=== PATIENT | female | born 1990 | race Caucasian/White ===

== ENCOUNTER 2023-11-28 09:41 | Inpatient (IN) | payer MEDICAID, SELFPAY ==
[2023-11-28 09:43] VITALS: BP 140/86; PULSE 129; RESP 18; TEMP 36.1; O2SAT 99; BMI 19.4
[2023-11-28] MEDS: Ondansetron 4 MG/2 ML Vial IV (10:11)
[2023-11-28] MEDS: 0.9% Normal Saline (1000mL) 1,000 ML 999 ML IV (10:11)
[2023-11-28 10:14] LABS: Absolute Lymphocyte Count 0.92 X10^3/uL (0.83-4.51); Absolute Neutrophil Count 4.2 X10^3/uL (2.0-7.7); Basophil# 0.04 X10^3/uL; Basophil% 0.7 % (0-1); Hematocrit 32.9 % (37-47); Hemoglobin 10.9 g/dL (12.0-15.0); Lymphocyte # 0.92 X10^3/ul (0.83-4.51); Mean Corp Hgb Conc 33.1 g/dL (32-36); Mean Corpuscular Hgb 32.8 pg (27.0-32.0); Mean Corpuscular Volume 99.1 fL (81-99); Mean Platelet Vol. 8.2 fl (6.2-12.0); Monocyte# 0.27 X10^3/uL; NRBC Flagged by Analyzer 0 % (0-5); Neutrophil # 4.16 X10^3/uL (2.7-7.7); Neutrophil % 76.9 % (47-70); Platelet Count 151 K/mm3 (150-450); RBC Distribution Width CV 17.5 % (11.6-14.6); RBC Distribution Width SD 63.6 fl (35.1-43.9); Red Blood Count 3.32 M/mm3 (4.2-5.4); White Blood Count 5.4 K/mm3 (4.4-11.0)
[2023-11-28 10:29] LABS: Osmolality, Serum 327 mOsm/KG (275-295)
[2023-11-28 10:31] LABS: Internal QC Validated? YES +Cl - CLEAR BKGD; Pregnancy, Serum, hCG Quali. NEGATIVE Negative; Record Kit Lot#, Serum Preg. HCG0000772476
[2023-11-28 10:34] LABS: ALB/GLOB Ratio 1.1 RATIO (0.9-2.4); AST(SGOT) 223 U/L (15-37); Alanine Aminotransfer ALT/SGPT 71 U/L (13-56); Alkaline Phosphatase 93 U/L (45-117); Anion Gap 21 (5-15); BUN 9 mg/dL (7-18); BUN/Creat Ratio 10.8 RATIO (10-20); Calcium,Total 8.3 mg/dL (8.5-10.1); Chloride 95 mmol/L (98-107); Creatinine, Serum 0.83 mg/dL (0.55-1.02); EST Glomerular Filtration Rate 83 mL/min (>60); Est Glom Filt Rate - Afr Amer 100 mL/min (>60); Estimated Creatinine Clearance 86.71 ml/min; Globulin 3.5 g/dL (2.2-4.2); Glucose 129 mg/dL (74-106); Potassium 3.5 mmol/L (3.5-5.1); Protein, Total 7.5 g/dL (6.4-8.2); Sodium Level 132 mmol/L (136-145)
--- NOTE | 2023-11-28 10:52 | CT_ITS ---
EXAM: CT ABDOMEN AND PELVIS WITH INTRAVENOUS CONTRAST CLINICAL INDICATION: abdominal pain TECHNIQUE: Helically acquired images were obtained of the abdomen and pelvis with intravenous contrast. This CT exam was performed using one or more of the following dose reduction techniques: automated exposure control, adjustment of the mA and/or kV according to patient size, and/or use of iterative reconstruction technique. CONTRAST: IV 70mL [id number] COMPARISON: No relevant prior studies available. FINDINGS: LOWER THORAX: No significant abnormality. Lung bases are clear. No cardiomegaly. No significant pericardial effusion. ABDOMEN: LIVER: Diffuse low-attenuation throughout the liver consistent with fatty infiltration. No hepatic capsular nodularity or focal hepatic lesion is identified. GALLBLADDER AND BILE DUCTS: No significant abnormality. No calcified gallstones. No gallbladder distention or wall edema. No intra- or extrahepatic biliary ductal dilation. PANCREAS: Subtle peripancreatic edema without focal pancreatic lesion. SPLEEN: No significant abnormality. Normal size without focal cystic or solid mass. ADRENALS: No significant abnormality. No nodules. KIDNEYS AND URETERS: Horseshoe kidney. Otherwise, no additional renal abnormality. No hydronephrosis. STOMACH AND BOWEL: No significant abnormality. No stomach or bowel distention. No focal inflammatory change. PELVIS: APPENDIX: A normal appendix is identified in the right lower quadrant. BLADDER: No significant abnormality. REPRODUCTIVE: An IUD is present. ABDOMEN and PELVIS: INTRAPERITONEAL SPACE: No significant abnormality. No ascites or other fluid collection. No free air. BONES/JOINTS: No significant abnormality. No suspicious lytic or blastic abnormality. SOFT TISSUES: No significant abnormality. No discrete abdominal or pelvic wall hernia. VASCULATURE: No significant abnormality. Abdominal aorta is non-dilated. LYMPH NODES: No significant abnormality. No enlarged lymph nodes. CT/Abdomen/Pelvis W IV Cont ONLY IMPRESSION: 1. Suspect mild uncomplicated acute pancreatitis. 2. Fatty liver. No evidence of cirrhosis. 3. Horseshoe kidney. Otherwise, no additional renal abnormality. Electronically Signed: Ronni Pal DO at 11:53 EDT ,
[2023-11-28 11:03] LABS: Lipase 345 U/L (13-75)
[2023-11-28 11:15] LABS: Magnesium 1.6 mg/dL (1.6-2.6)
--- NOTE | 2023-11-28 11:19 | EDS_ITS ---
HPI History of Present Illness Chief Complaint: Substance Abuse Narrative Narrative: 33-year-old female presenting from home with nausea, vomiting, abdominal pain. 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 She has not had any regular alcohol. She states that she has about 30 64 ounce bottles of hand boring and filling machine operator stashed around her house and when she feels like she needs to drink she will pump a few pumps into her mouth. She states she does not really know how much she is using she and she does this several times a day. Patient denies any other drugs. She denies history of pancreatitis. She does have history of depression and anxiety and states she takes her meds regularly. She states she did not do this to hurt herself intentionally. PFSH PFS Home Medications ?Medication ?Instructions ?Recorded ?Last Taken ?Type fluoxetine 20 mg capsule (Prozac) 20 mg PO DAILY 11/28/23 Unknown History olanzapine 5 mg tablet (Zyprexa) 5 mg PO DAILY 11/28/23 Unknown History Allergy/AdvReac Type Severity Reaction Status Date / Time No Known Allergies Allergy Verified 11/28/23 09:43 Social History Smoking Status: Former smoker ROS ROS ED Constitutional Constitutional ED: Denies chills, fever(s) or sweats Eyes Eyes: Denies blurry vision or change in vision ENT ENT ED: Denies ear pain or sore throat Cardiovascular Cardiovascular: Denies chest pain, palpitations or racing heartbeat Respiratory/Chest Respiratory/Chest: Denies cough, dyspnea or sputum Gastrointestinal Gastrointestinal: Reports abdominal pain, nausea and vomiting; Denies constipation or diarrhea Genitourinary Genitourinary ED: Denies dysuria, hematuria or urinary frequency Musculoskeletal Musculoskeletal: Denies arthralgias, myalgias or neck pain Integumentary Denies abscess, Abrasions or rash Neurologic Neurologic: Denies headache(s), paresthesias or weakness Psychiatric Psychiatric: Denies anxiety, depression, suicidal ideation or suicidal thoughts Endocrine Endocrinology: Denies polydipsia or polyuria EXAM Physical Exam Const Vital Signs: 11/28/23 09:43 11/28/23 12:00 Temperature 97.0 F L Temperature Source Temporal Pulse Rate 129 H 123 H Respiratory Rate 18 18 Blood Pressure 140/86 H 147/82 H Blood Pressure Mean 104 103 Pulse Ox 99 97 Oxygen Delivery Method Room Air Room Air Positive well nourished General Appearance ED: NAD; Negative for pallor HEENT Reports moist mucous membranes atraumatic Eyes PERRL and EOMs intact bilaterally Chest Wall inspection of chest normal Resp normal respiratory effort and clear to auscultation bilaterally Cardio regular rhythm Rate: tachycardic GI Palpation: tender epigastric and RUQ Back/Spine no CVA tenderness Extremity General Extremety ED: Negative for edema General Extremity: Negative for edema Neuro oriented x3 and CN's II-XII intact bilaterally Sensorium / Orientation: alert Motor Exam: strength 5/5 throughout Psych mental status grossly normal Skin General Skin Exam: Negative for jaundice or pallor MDM MDM MDM Narrative Medical decision making narrative: Patient presenting for detox. Patient states she has 64 ounce bottles of hand boring and filling machine operator at home that she stashes and when she needs some she just bumped it into her mouth. She states has been doing this since September. After initial evaluation patient had an episode of hematemesis. She has been vomiting. Patient presenting with right flank pain. Differential includes colitis, diverticulitis, gastritis, pancreatitis, Boerhaave's, upper GI bleed, acute cholecystitis, constipation, appendicitis, UTI, pyelonephritis, calculi, ureteral calculi, obstruction, malignancy, dehydration, electrolyte abnormalities, ovarian torsion, ovarian cyst, ectopic CBC will be obtained to assess white blood cell count, hemoglobin, platelets. CMP to assess renal function, electrolytes, liver function, glucose. Lipase to assess for pancreatitis. Will also obtain an EKG due to the tachycardia as well as a troponin. Urinalysis to assess for UTI. CBC shows a normal white count of 5.4. Hemoglobin 10.9 with no comparison. Platelets normal at 151. Creatinine is normal. Sodium slightly low at 132 and CO2 slightly low at 16. Glucose 129. Serum osmolality 327. Calculated osmolality 304.22 therefore she has a osmolar gap. And in anion gap. Glucose is only 129. Magnesium level normal at 1.6. Patient was given IV fluids, 2 mg of Ativan, started on a Protonix drip. Initially Zofran was helping but I gave her a dose of Phenergan IM. Discussed with poison control At length. Poison control rewards consultant felt lab work reflected likely isopropyl alcohol and they recommended supportive care in regard to this. I did ask if they recommended fomepizole given her unclear of what is in the lab work and they reassured me that believe it is isopropyl alcohol and also that if you start fomepizole it will prolong the half-life of the isopropyl alcohol. They also stated that it would metabolize into acetone and this was why ketones are showing up. They recommended checking an acetaminophen level and a salicylate level just out of caution. He also recommended a GI consult. Salicylates and acetaminophen were negative. Urine drug screen negative. EtOH 85. High-sensitivity troponin less than 3. EKG sinus rhythm at 109 bpm without sign of ischemic change. This is on my interpretation. hCG was negative. AST was mildly elevated at 223 and ALT 71. Lipase mildly elevated at 345. Because of her abdominal pain I obtained a CT of the abdomen pelvis with IV contrast. This shows mild uncomplicated acute pancreatitis. Discussed the case with Dr. Castro who is amenable to keeping the patient here at [facility]. Patient was typed and screened. Started on a Protonix drip. Discussed with hospitalist for admission. Impression: 1. Isopropyl alcohol ingestion 2. For GI bleed 3. EtOH withdrawal 4. Tachycardia 5. Acute pancreatitis 6. Elevated anion gap 7. Osmolar gap Lab Data Attestation: I reviewed the patient's lab results. Labs: Laboratory Results - last 24 hr 11/28/23 11/28/23 11/28/23 10:07 11:29 11:35 WBC 5.4 RBC 3.32 L Hgb 10.9 L Hct 32.9 L MCV 99.1 H MCH 32.8 H MCHC 33.1 RDW Std Deviation 63.6 H RDW Coeff of Janine 17.5 H Plt Count 151 MPV 8.2 Immature Gran % (Auto) 0.400 Neut % (Auto) 76.9 H Lymph % (Auto) 17.0 L [place] % (Auto) 5.0 Eos % (Auto) 0.0 Baso % (Auto) 0.7 Absolute Neuts (auto) 4.2 Absolute Lymphs (auto) 0.92 Nucleated RBC % 0 Sodium 132 L Potassium 3.5 Chloride 95 L Carbon Dioxide 16.0 L Anion Gap 21 H BUN 9 Creatinine 0.83 Estim Creat Clear Calc 86.71 Est GFR (MDRD) Af Amer 100 Est GFR (MDRD) Non-Af 83 BUN/Creatinine Ratio 10.8 Glucose 129 H Serum Osmolality 327 H Calcium 8.3 L Magnesium 1.6 Total Bilirubin 0.80 AST 223 H ALT 71 H Alkaline Phosphatase 93 Troponin I High Sens < 3 L Total Protein 7.5 Albumin 4.0 Globulin 3.5 Albumin/Globulin Ratio 1.1 Lipase 345 H Serum , Qual NEGATIVE Salicylates < 1.7 L Urine Opiates Screen NEGATIVE Urine Methadone Screen NEGATIVE Acetaminophen < 2.0 L Ur Barbiturates Screen NEGATIVE Ur Phencyclidine Scrn NEGATIVE Ur Amphetamines Screen NEGATIVE MDMA (Ecstasy) Screen NEGATIVE U Benzodiazepines Scrn NEGATIVE Urine Cocaine Screen NEGATIVE U Cannabinoids Screen NEGATIVE Ur Drug Screen Comment Ethyl Alcohol 85.0 Acetone Level SMALL H Blood Type O POSITIVE Antibody Screen NEGATIVE Radiography Diagnostic Testing: Clinical Impression(s) from Imaging Studies Abdomen/Pelvis CT 11/28/23 10:52 IMPRESSION: 1. Suspect mild uncomplicated acute pancreatitis. 2. Fatty liver. No evidence of cirrhosis. 3. Horseshoe kidney. Otherwise, no additional renal abnormality. Electronically Signed: Ronni Pal DO at 11:53 EDT Reading Location ID and State: [facility] / [place] Tel , Service support , ADDENDUM: 11/28/23 1206 IMPRESSION: 1. Suspect mild uncomplicated acute pancreatitis. 2. Fatty liver. No evidence of cirrhosis. 3. Horseshoe kidney. Otherwise, no additional renal abnormality. N.B. : Keyona Shin RN, confirmed on 11/28/2023 11:59:43 (ET) that the healthcare facility has received the radiology report. Electronically Signed: Ronni Pal DO at 11:53 EDT , Discharge Plan Triage Chief Complaint: Substance Abuse ED Provider: Alvaro Jimenez Dx/Rx/DC Orders Primary Care Provider: Care Physician,Chelsea Primary
--- NOTE | 2023-11-28 11:21 | EKG12_ITS ---
Test Reason : DETOX Blood Pressure : / mmHG Vent. Rate : 109 BPM Atrial Rate : 109 BPM P-R Int : 132 ms QRS Dur : 070 ms QT Int : 334 ms P-R-T Axes : 030 -01 047 degrees QTc Int : 449 ms Sinus tachycardia with Fusion complexes Septal infarct , age undetermined Abnormal ECG Confirmed by JOSE LUIS ARREOLA, ELANA ([id number]), assignment editor INDY DIMAS ([id number]) on 11/29/2023 8:07:49 AM Referred By: Confirmed By:ELANA AMAYA MD
[2023-11-28] MEDS: proMETHazine 25 MG/ML Syringe 12.5 MG IM (11:29)
[2023-11-28] MEDS: LORazepam 2 MG/ML Syringe IV (11:29)
[2023-11-28] MEDS: Pantoprazole Sodium 80 MG in 0.9% Normal Saline (100mL Bag) 80 ML 10 MG CONT INF ×2 (11:31→23:17)
[2023-11-28 11:50] LABS: Amphetamine Urine VISTA NEGATIVE (<1000 ng/mL); Barbiturate Urine VISTA NEGATIVE (< 200 ng/mL); Benzodiazepine Urine VISTA NEGATIVE (< 200 ng/mL); Cocaine Urine VISTA NEGATIVE (< 300 ng/mL); Ecstacy Urine VISTA NEGATIVE (< 500 ng/mL); Methadone Urine VISTA NEGATIVE (< 300 ng/mL); PCP Urine VISTA NEGATIVE (< 25 ng/mL); THC Urine VISTA NEGATIVE (< 50 ng/mL); Vista UDS pH Range 5
[2023-11-28 12:00] VITALS: BP 147/82; PULSE 123; RESP 18; O2SAT 97
[2023-11-28 12:00] LABS: Acetaminophen (Tylenol) Level < 2.0 ug/mL (10.0-30.0); Salicylate < 1.7 mg/dL (2.8-20.0)
[2023-11-28 12:01] LABS: Troponin-I HS < 3 pg/mL (3.0-54.0)
--- NOTE | 2023-11-28 12:09 | PCM.HP.STD ---
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 Prior to that, she has been drinking alcohol since age of 17 but switched to hand property and casualty insurance agent becauseit is cheap. She had 1 dose around 4 AM. She is complaining of her body being stiff, severe anxiety, cannot relax but no hallucinations, suicidal ideation or thoughts or attempts. She denies psychotic symptoms of withdrawal from reality, derealization, depersonalization. She has history of anxiety and depression and had 3 times suicidal attempts in the past with cutting her wrist and 1 time overdosing with alcohol and benzodiazepine. In ED, initial lab work shows high anion gap, high serum osmolarity and high osmolar gap. With isopropyl alcohol addiction, Poison control was called by ED physician and he suggested supportive measure and does not qualify for fomepizole. She also had hematemesis 1 large-volume in the morning and another time small streak of blood. Besides that she had 3-4 vomiting of clear liquid. Complain of epigastric/upper abdominal pain, she states it is both external and internal from muscular pain and burning pain. It is 4-5/10 intensity. Social history former smoker. Rest as described above. Family history: No first-degree family to of alcohol dependence. [facility] Home Medications ?Medication ?Instructions ?Recorded ?Last Taken ?Type fluoxetine 20 mg capsule (Prozac) 20 mg PO DAILY 11/28/23 Unknown History olanzapine 5 mg tablet (Zyprexa) 5 mg PO DAILY 11/28/23 Unknown History Allergy/AdvReac Type Severity Reaction Status Date / Time No Known Allergies Allergy Verified 11/28/23 09:43 Social History Smoking Status: Former smoker ROS ROS Narrative Constitutional: Reports acute fatigue and weakness. No fever. HEENT: Reports systems reviewed and no addt'l complaints, except as documented Respiratory/Chest: No acute shortness of breath or respiratory distress or wheezing. CVS: No chest pain pressure or tightness Gastrointestinal: As described in HPI. Bowel movement regular. Genitourinary: Urine is dark yellow with less frequency last 2 days. Denies burning urination. Musculoskeletal: Denies acute joint pain or limited range of motion. No acute injury Neurologic: Denies seizure-like symptoms. No focal strokelike symptoms or headache but mild dizziness. Psychiatry: As described in HPI skin: No ulcer. No rash Endocrinology: Reports systems reviewed and no addt'l complaints, except as documented Hematologic/Lymphatic: Reports systems reviewed and no addt'l complaints, except as documented Rest 14 ROS are negative except as mentioned in HPI Vital Signs Vital Signs Vital Signs: 11/28/23 09:43 Temperature 97.0 F L Temperature Source Temporal Pulse Rate 129 H Respiratory Rate 18 Blood Pressure 140/86 H Blood Pressure Mean 104 Pulse Ox 99 Oxygen Delivery Method Room Air Weight Weight: 128 lb Body Mass Index (BMI) 19.4 Physical Exam Narrative Seen and examined General: Alert, Oriented x3, Cooperative HEENT: Atraumatic, PERRLA, EOMI, Normocephalic Oral: No Gingival or Mucosal Lesions/ Ulcerations Neck: Supple, No JVD, Negative Carotid Bruits Chest wall/Lungs: Air entry diminished in bilateral lung bases. No crepitation/rhonchi Cardiovascular: Sinus tachycardia, Normal S1, Normal S2, No M/G/R Abdomen: Bowel Sounds Present, Soft, mild epigastric tenderness, Non-Distended : No dysuria. No renal angle tenderness. No suprapubic tenderness. Extremities: No edema, Capillary Refill Less than 3 Seconds Skin: No rashes, No breakdown Musculoskeletal: No Tenderness to Palpation of Joints or Extremities. Mild tremors/shaking Neurological: Cranial nerves II-XII grossly intact, DTR 2+/4. No acute focal neurological deficit. Psych/Mental Status: Flat affect, looks depressed Results Lab / Micro Data 11/28/23 10:07 11/28/23 10:07 Labs: Laboratory Results - last 24 hr 11/28/23 10:07: WBC 5.4, RBC 3.32 L, Hgb 10.9 L, Hct 32.9 L, MCV 99.1 H, MCH 32.8 H, MCHC 33.1, RDW Std Deviation 63.6 H, RDW Coeff of Janine 17.5 H, Plt Count 151, MPV 8.2, Immature Gran % (Auto) 0.400, Neut % (Auto) 76.9 H, Lymph % (Auto) 17.0 L, [place] % (Auto) 5.0, Eos % (Auto) 0.0, Baso % (Auto) 0.7, Absolute Neuts (auto) 4.2, Absolute Lymphs (auto) 0.92, Nucleated RBC % 0, Sodium 132 L, Potassium 3.5, Chloride 95 L, Carbon Dioxide 16.0 L, Anion Gap 21 H, BUN 9, Creatinine 0.83, Estim Creat Clear Calc 86.71, Est GFR (MDRD) Af Amer 100, Est GFR (MDRD) Non-Af 83, BUN/Creatinine Ratio 10.8, Glucose 129 H, Serum Osmolality 327 H, Calcium 8.3 L, Magnesium 1.6, Total Bilirubin 0.80, AST 223 H, ALT 71 H, Alkaline Phosphatase 93, Total Protein 7.5, Albumin 4.0, Globulin 3.5, Albumin/Globulin Ratio 1.1, Lipase 345 H, Serum , Qual NEGATIVE, Ethyl Alcohol 85.0, Acetone Level SMALL H 11/28/23 11:29: Urine Opiates Screen NEGATIVE, Urine Methadone Screen NEGATIVE, Ur Barbiturates Screen NEGATIVE, Ur Phencyclidine Scrn NEGATIVE, Ur Amphetamines Screen NEGATIVE, MDMA (Ecstasy) Screen NEGATIVE, U Benzodiazepines Scrn NEGATIVE, Urine Cocaine Screen NEGATIVE, U Cannabinoids Screen NEGATIVE, Ur Drug Screen Comment 11/28/23 11:35: Troponin I High Sens < 3 L, Salicylates < 1.7 L, Acetaminophen < 2.0 L Imaging Radiology Impression Abdomen/Pelvis CT 11/28/23 10:52 IMPRESSION: 1. Suspect mild uncomplicated acute pancreatitis. 2. Fatty liver. No evidence of cirrhosis. 3. Horseshoe kidney. Otherwise, no additional renal abnormality. Electronically Signed: Ronni Pal DO at 11:53 EDT , ADDENDUM: 11/28/23 1206 IMPRESSION: 1. Suspect mild uncomplicated acute pancreatitis. 2. Fatty liver. No evidence of cirrhosis. 3. Horseshoe kidney. Otherwise, no additional renal abnormality. N.B. : Keyona Shin RN, confirmed on 11/28/2023 11:59:43 (ET) that the healthcare facility has received the radiology report. Electronically Signed: Ronni Pal DO at 11:53 EDT , Assessment & Plan Assessment/Plan (1) Acute hyperactive alcohol withdrawal delirium: (2) Acute upper GI bleed: PLAN: Plan This is a 33-year-old female came to ED for acute withdrawal from isopropamide alcohol chronic use and dependence 1. 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 Mild withdrawal symptoms of stiffness, anxiety and tremors. No acute psychotic symptoms. Labs reviewed. Calculated serum osmolality is about 297. Measured serum osmolarity 327. Osmolar gap 29.6. Anion gap 21. Serum acetone elevated, high anion gap and osmolar gap suggestive of high anion gap metabolic acidosis due to isopropyl alcohol chronic drinking. Poison control was consulted by ED physician. IV fluid normal saline ordered. No acute indication of fomepizole. Patient was given Ativan but not good response therefore started on buprenorphine along with other adjunctive medications as needed for medical stabilization as per order set of opioid withdrawal syndrome.Patient also on trazodone, hydroxyzine, gabapentin as needed ordered. Advised quitting opioid use. manager managing consult. 2. Acute upper GI bleed: H&H 10.9/32.9%. Monitor H&H every 6 hourly. On PPI drip. GI is consulted. 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 Possible EGD tomorrow AM. 3. Severe anxiety and depression: Patient had history of 3 times suicidal attempt in the past but currently denies suicidal ideation, plan or thought. She feels anxious and depressed. 4. DVT prophylaxis, low risk currently ambulation encouraged. Laboratory Results 11/28/23 10:07: WBC 5.4, RBC 3.32 L, Hgb 10.9 L, Hct 32.9 L, MCV 99.1 H, MCH 32.8 H, MCHC 33.1, RDW Std Deviation 63.6 H, RDW Coeff of Janine 17.5 H, Plt Count 151, MPV 8.2, Immature Gran % (Auto) 0.400, Neut % (Auto) 76.9 H, Lymph % (Auto) 17.0 L, [place] % (Auto) 5.0, Eos % (Auto) 0.0, Baso % (Auto) 0.7, Absolute Neuts (auto) 4.2, Absolute Lymphs (auto) 0.92, Nucleated RBC % 0, Sodium 132 L, Potassium 3.5, Chloride 95 L, Carbon Dioxide 16.0 L, Anion Gap 21 H, BUN 9, Creatinine 0.83, Estim Creat Clear Calc 86.71, Est GFR (MDRD) Af Amer 100, Est GFR (MDRD) Non-Af 83, BUN/Creatinine Ratio 10.8, Glucose 129 H, Serum Osmolality 327 H, Calcium 8.3 L, Magnesium 1.6, Total Bilirubin 0.80, AST 223 H, ALT 71 H, Alkaline Phosphatase 93, Total Protein 7.5, Albumin 4.0, Globulin 3.5, Albumin/Globulin Ratio 1.1, Lipase 345 H, Serum , Qual NEGATIVE, Ethyl Alcohol 85.0, Acetone Level SMALL H 11/28/23 11:29: Urine Opiates Screen NEGATIVE, Urine Methadone Screen NEGATIVE, Ur Barbiturates Screen NEGATIVE, Ur Phencyclidine Scrn NEGATIVE, Ur Amphetamines Screen NEGATIVE, MDMA (Ecstasy) Screen NEGATIVE, U Benzodiazepines Scrn NEGATIVE, Urine Cocaine Screen NEGATIVE, U Cannabinoids Screen NEGATIVE, Ur Drug Screen Comment 11/28/23 11:35: Troponin I High Sens < 3 L, Salicylates < 1.7 L, Acetaminophen < 2.0 L, Antibody Screen Pending Charges/Coding Visit Charges Inpatient E&M: 68236 Init Hosp L3
--- NOTE | 2023-11-28 12:20 | DCINST_ITS ---
Discharge Instructions Diet Discharge Diet: No restrictions Activity Discharge Activity: Return to Normal Activity Weight Bearing Status: Weight bearing as tolerated Dressing / Incision Call your doctor if you observe: Fever of 101 or Higher, Coldness, Increased Pain, Numbness or Tingling, Change in Color, Inability to urinate, Inability to have a bowel movement, Shortness of breath, Dizziness, Fainting spells, Swelling in the ankles, Chest pain, Prolonged hiccupping, Increased palpitations (irregular heartbeat) and Calf discomfort Follow Up Care When: IN 2 WEEKS Test Results: Test results from this visit will be discussed in further detail at your follow- up appointment, if applicable. Discharge Plan Triage Chief Complaint: Substance Abuse ED Provider: Alvaro Jimenez Dx/Rx/DC Orders Prescriptions: No Action fluoxetine [Prozac] 20 mg capsule 20 mg PO DAILY olanzapine [Zyprexa] 5 mg tablet 5 mg PO DAILY Primary Care Provider: Care Physician,No Primary Referrals: NOT,DEFINED [Non-Staff] - Print Language: Israeli
[2023-11-28] MEDS: 0.9% Normal Saline (1000mL) 1,000 ML 75 ML IV ×2 (12:35→20:03)
[2023-11-28 12:51] LABS: Base Excess -9 mmol/L (-2 to +2); Bicarbonate 16.1 mmol/L (22-26); Blood Gas Specimen Type ART; Mode Not entered; O2 Delivery Device Room Air; PO2 92 mmHG (75-100); SITE L Radial; SO2 97 % (95-99); Total Carbon Dioxide 17 mmol/L; pCO2 26.5 mmHg (35-45); pH 7.39 (7.35-7.45)
[2023-11-28 13:00] VITALS: BP 148/92; PULSE 120; RESP 16; O2SAT 97
[2023-11-28 13:03] LABS: International Normalized Ratio 1.3
[2023-11-28 13:50] VITALS: BP 128/96; BP 131/79; PULSE 117; PULSE 125; RESP 16; TEMP 36.8; TEMP 37.3; O2SAT 97; O2SAT 99
[2023-11-28 14:21] VITALS: BMI 19.4
--- NOTE | 2023-11-28 14:22 | EX.PCM.CON.G ---
HPI Consult Data Date of Consult: 11/28/23 HPI Narrative Reason for Consultation: Upper GI bleed HPI Narrative: GAMA STEELE, is a 33-year-old female presenting from home with nausea, vomiting, abdominal pain. 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 She has not had any regular alcohol. 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 She states she does not really know how much she is using she and she does this several times a day. Patient denies any other drugs. She denies history of pancreatitis. She does have history of depression and anxiety and states she takes her meds regularly. She states she did not do this to hurt herself intentionally. Biochemical workup in ED was consistent with alcoholic hepatitis and alcoholic pancreatitis. She had a CT scan abdomen pelvis which showed hepatomegaly with steatosis and mild uncomplicated pancreatitis. [facility] Home Medications ?Medication ?Instructions ?Recorded ?Last Taken ?Type fluoxetine 20 mg capsule (Prozac) 20 mg PO DAILY 11/28/23 Unknown History olanzapine 5 mg tablet (Zyprexa) 5 mg PO DAILY 11/28/23 Unknown History Allergy/AdvReac Type Severity Reaction Status Date / Time No Known Allergies Allergy Verified 11/28/23 09:43 Social History Smoking Status: Former smoker ROS ROS Narrative Constitutional: Reports acute fatigue and weakness. No fever. HEENT: Reports systems reviewed and no addt'l complaints, except as documented Respiratory/Chest: No acute shortness of breath or respiratory distress or wheezing. CVS: No chest pain pressure or tightness Gastrointestinal: As described in HPI. Bowel movement regular. Genitourinary: Urine is dark yellow with less frequency last 2 days. Denies burning urination. Musculoskeletal: Denies acute joint pain or limited range of motion. No acute injury Neurologic: Denies seizure-like symptoms. No focal strokelike symptoms or headache but mild dizziness. Psychiatry: As described in HPI skin: No ulcer. No rash Endocrinology: Reports systems reviewed and no addt'l complaints, except as documented Hematologic/Lymphatic: Reports systems reviewed and no addt'l complaints, except as documented Rest 14 ROS are negative except as mentioned in HPI Physical Exam Narrative Seen and examined General: Alert, Oriented x3, Cooperative HEENT: Atraumatic, PERRLA, EOMI, Normocephalic Oral: No Gingival or Mucosal Lesions/ Ulcerations Neck: Supple, No JVD, Negative Carotid Bruits Chest wall/Lungs: Air entry diminished in bilateral lung bases. No crepitation/rhonchi Cardiovascular: Sinus tachycardia, Normal S1, Normal S2, No M/G/R Abdomen: Bowel Sounds Present, Soft, mild epigastric tenderness, Non-Distended : No dysuria. No renal angle tenderness. No suprapubic tenderness. Extremities: No edema, Capillary Refill Less than 3 Seconds Skin: No rashes, No breakdown Musculoskeletal: No Tenderness to Palpation of Joints or Extremities. Mild tremors/shaking Neurological: Cranial nerves II-XII grossly intact, DTR 2+/4. No acute focal neurological deficit. Psych/Mental Status: Flat affect, looks depressed Lab / Micro Data 11/28/23 10:07 11/28/23 10:07 Labs: Laboratory Results - last 24 hr 11/28/23 10:07: WBC 5.4, RBC 3.32 L, Hgb 10.9 L, Hct 32.9 L, MCV 99.1 H, MCH 32.8 H, MCHC 33.1, RDW Std Deviation 63.6 H, RDW Coeff of Janine 17.5 H, Plt Count 151, MPV 8.2, Immature Gran % (Auto) 0.400, Neut % (Auto) 76.9 H, Lymph % (Auto) 17.0 L, Woodward % (Auto) 5.0, Eos % (Auto) 0.0, Baso % (Auto) 0.7, Absolute Neuts (auto) 4.2, Absolute Lymphs (auto) 0.92, Nucleated RBC % 0, Sodium 132 L, Potassium 3.5, Chloride 95 L, Carbon Dioxide 16.0 L, Anion Gap 21 H, BUN 9, Creatinine 0.83, Estim Creat Clear Calc 86.71, Est GFR (MDRD) Af Amer 100, Est GFR (MDRD) Non-Af 83, BUN/Creatinine Ratio 10.8, Glucose 129 H, Serum Osmolality 327 H, Calcium 8.3 L, Magnesium 1.6, Total Bilirubin 0.80, AST 223 H, ALT 71 H, Alkaline Phosphatase 93, Total Protein 7.5, Albumin 4.0, Globulin 3.5, Albumin/Globulin Ratio 1.1, Lipase 345 H, Serum , Qual NEGATIVE, Ethyl Alcohol 85.0, Acetone Level SMALL H 11/28/23 11:29: Urine Opiates Screen NEGATIVE, Urine Methadone Screen NEGATIVE, Ur Barbiturates Screen NEGATIVE, Ur Phencyclidine Scrn NEGATIVE, Ur Amphetamines Screen NEGATIVE, MDMA (Ecstasy) Screen NEGATIVE, U Benzodiazepines Scrn NEGATIVE, Urine Cocaine Screen NEGATIVE, U Cannabinoids Screen NEGATIVE, Ur Drug Screen Comment 11/28/23 11:35: Troponin I High Sens < 3 L, Salicylates < 1.7 L, Acetaminophen < 2.0 L, Blood Type O POSITIVE, Antibody Screen NEGATIVE 11/28/23 12:38: PT 16.0 H, INR 1.3 ABG Data ABG results: ABG 11/28/23 12:47 Specimen Type ART Sample Site L Radial pH 7.39 Bicarbonate Actual 16.1 L Total CO2 17 Base Excess -9 L O2 Saturation 97 ABG pCO2 26.5 L ABG pO2 92 O2 Delivery Device Room Air Vent Mode Not entered Imaging Radiology Impression Abdomen/Pelvis CT 11/28/23 10:52 IMPRESSION: 1. Suspect mild uncomplicated acute pancreatitis. 2. Fatty liver. No evidence of cirrhosis. 3. Horseshoe kidney. Otherwise, no additional renal abnormality. Electronically Signed: Ronni Pal DO at 11:53 EDT Reading Location ID and State: [facility] / [place] Tel , Service support , ADDENDUM: 11/28/23 1206 IMPRESSION: 1. Suspect mild uncomplicated acute pancreatitis. 2. Fatty liver. No evidence of cirrhosis. 3. Horseshoe kidney. Otherwise, no additional renal abnormality. N.B. : Keyona Shin RN, confirmed on 11/28/2023 11:59:43 (ET) that the healthcare facility has received the radiology report. 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 She was discovered to have alcoholic hepatitis and alcoholic pancreatitis. Acute upper GI bleed: Differential diagnosis does include alcoholic gastritis, alcoholic esophagitis, erosive esophagitis, Alina-Staton tear, peptic ulcer disease. She should undergo an upper endoscopy to evaluate upper GI tract. She was explained alternatives, risk, benefits including not withstanding bleeding, infection, sepsis, perforation, need for emergent or . She have an ASA of 3. I agree with every 6 hour hemoglobin checks and PPI therapy. She is okay to have clear liquids at this time. N.p.o. past midnight. EGD tomorrow AM. Mild uncomplicated pancreatitis. Recommend normal saline IV fluids at 200 cc an hour. Alcoholic hepatitis. Low Madrey score at 16. She does not have any signs or symptoms of cirrhosis and it was not present on imaging. No indication for steroids at this time. Charges/Coding Visit Charges Inpatient E&M: 88878 Init Hosp L3
[2023-11-28] MEDS: Phenobarbital 32.4 MG Tablet 64.8 MG PO ×3 (15:21→23:21)
[2023-11-28] MEDS: Gabapentin 300 MG Capsule PO (15:22)
[2023-11-28 16:11] LABS: Hematocrit 26.5 % (37-47); Hemoglobin 8.8 g/dL (12.0-15.0)
[2023-11-28 17:10] LABS: Internal QC Validated? YES +Cl - CLEAR BKGD; Pregnancy, Urine Negative Negative
[2023-11-28 17:18] LABS: Protein, Urine (Random) 40.7 mg/dL (<11.9); Protein:Creat Ratio 698 mg/g CRE (0-200); Urine Chloride 30 mmol/L (Not Establ.); Urine Sodium 69 mmol/L (Not Establ.)
[2023-11-28 17:23] LABS: Osmolality, Urine 715 mOsm/KG
[2023-11-28 19:17] LABS: Osmolality, Serum 288 mOsm/KG (275-295)
[2023-11-28 19:18] LABS: Anion Gap 10 (5-15); BUN 5 mg/dL (7-18); BUN/Creat Ratio 4.8 RATIO (10-20); Calcium,Total 7.9 mg/dL (8.5-10.1); Chloride 97 mmol/L (98-107); Creatinine, Serum 1.05 mg/dL (0.55-1.02); EST Glomerular Filtration Rate 63 mL/min (>60); Est Glom Filt Rate - Afr Amer 77 mL/min (>60); Estimated Creatinine Clearance 68.54 ml/min; Glucose 143 mg/dL (74-106); Potassium 3.1 mmol/L (3.5-5.1); Sodium Level 132 mmol/L (136-145)
[2023-11-28 20:05] VITALS: BP 135/93; PULSE 93; RESP 14; TEMP 36.9; O2SAT 96
--- NOTE | 2023-11-28 21:15 | NURSING ---
poison controlled called for update on patient, updated labs provided, stated they would sign off at this time
[2023-11-28 21:58] LABS: Hematocrit 25.7 % (37-47); Hemoglobin 8.7 g/dL (12.0-15.0)
[2023-11-28] MEDS: Ondansetron 8 MG Tablet PO (23:18)
[2023-11-28] MEDS: Potassium Chloride Oral Tablet 20 MEQ 40 MEQ PO (23:18)
[2023-11-28] MEDS: hydrOXYzine PAM 25 MG Capsule 50 MG PO (23:18)
[2023-11-28] MEDS: traZODone 100 MG Tablet PO (23:18)
[2023-11-29] VITALS (14 sets, daily range): BP systolic 110–128; BP diastolic 70–88; PULSE 83–114; RESP 12–18; TEMP 36.2–37.4; O2SAT 95–100; BMI 19.4
[2023-11-29] MEDS: Phenobarbital 32.4 MG Tablet 64.8 MG PO ×5 (03:10→23:33)
[2023-11-29 05:25] LABS: Absolute Lymphocyte Count 0.72 X10^3/uL (0.83-4.51); Absolute Neutrophil Count 0.9 X10^3/uL (2.0-7.7); Basophil# 0.02 X10^3/uL; Basophil% 1.1 % (0-1); Eosinophil# 0.02 X10^3/uL; Eosinophils% 1.1 % (0-5); Hematocrit 24.2 % (37-47); Hemoglobin 7.9 g/dL (12.0-15.0); Lymphocyte # 0.72 X10^3/ul (0.83-4.51); Lymphocyte % 41.4 % (19-41); Mean Corp Hgb Conc 32.6 g/dL (32-36); Mean Corpuscular Hgb 32.4 pg (27.0-32.0); Mean Corpuscular Volume 99.2 fL (81-99); Mean Platelet Vol. 9.1 fl (6.2-12.0); Monocyte# 0.11 X10^3/uL; Monocyte% 6.3 % (0-10); NRBC Flagged by Analyzer 0 % (0-5); Neutrophil # 0.86 X10^3/uL (2.7-7.7); Neutrophil % 49.5 % (47-70); POSITIVE DIFFERENTIAL YES; Platelet Count 102 K/mm3 (150-450); RBC Distribution Width CV 17.3 % (11.6-14.6); RBC Distribution Width SD 62.4 fl (35.1-43.9); Red Blood Count 2.44 M/mm3 (4.2-5.4); White Blood Count 1.7 K/mm3 (4.4-11.0)
[2023-11-29 05:31] LABS: Differential Indicated SCAN CRITERIA MET
[2023-11-29 05:33] LABS: International Normalized Ratio 1.3; Partial Thromboplast Time 25.5 Seconds (24.1-36.2); Prothrombin Time (Protime)PT. 15.8 SECONDS (11.7-14.9)
[2023-11-29 05:53] LABS: Differential Comment SCANNED
--- NOTE | 2023-11-29 05:55 | EKG12_ITS ---
Test Reason : PRE OP Blood Pressure : / mmHG Vent. Rate : 081 BPM Atrial Rate : 081 BPM P-R Int : 154 ms QRS Dur : 070 ms QT Int : 430 ms P-R-T Axes : 031 006 041 degrees QTc Int : 499 ms Normal sinus rhythm Septal infarct , age undetermined Abnormal ECG When compared with ECG of 28-NOV-2023 11:27, MANUAL COMPARISON REQUIRED, DATA IS UNCONFIRMED Confirmed by JOSE LUIS ARREOLA, ELANA ([id number]), copy editor AQUILES DURAN ([id number]) on 11/30/2023 5:55:01 AM Referred By: Confirmed By:ELANA AMAYA MD
[2023-11-29 06:07] LABS: ALB/GLOB Ratio 1.2 RATIO (0.9-2.4); AST(SGOT) 122 U/L (15-37); Alanine Aminotransfer ALT/SGPT 44 U/L (13-56); Alkaline Phosphatase 61 U/L (45-117); Anion Gap 6 (5-15); BUN 6 mg/dL (7-18); BUN/Creat Ratio 12.1 RATIO (10-20); Bilirubin, Direct 0.29 mg/dL (0.00-0.30); Calcium,Total 7.9 mg/dL (8.5-10.1); Chloride 104 mmol/L (98-107); EST Glomerular Filtration Rate 150 mL/min (>60); Est Glom Filt Rate - Afr Amer 182 mL/min (>60); Estimated Creatinine Clearance 143.94 ml/min; Globulin 2.4 g/dL (2.2-4.2); Glucose 96 mg/dL (74-106); Potassium 3.7 mmol/L (3.5-5.1); Protein, Total 5.4 g/dL (6.4-8.2); Sodium Level 137 mmol/L (136-145)
[2023-11-29] MEDS: Gabapentin 300 MG Capsule PO (06:50)
[2023-11-29] MEDS: Pantoprazole Sodium 80 MG in 0.9% Normal Saline (100mL Bag) 80 ML 10 MG CONT INF ×2 (08:46→18:35)
[2023-11-29] MEDS: 0.9% Normal Saline (1000mL) 1,000 ML 75 ML IV (08:46)
[2023-11-29] MEDS: Ondansetron 8 MG Tablet PO (08:50)
--- NOTE | 2023-11-29 09:01 | PCM.PN.HOSP ---
Reason for Visit Reason for Visit: Diagnoses Alcohol use, unspecified with withdrawal delirium (11/28/23) Gastrointestinal hemorrhage, unspecified (11/28/23) Subjective Subjective Patient is a 33-year-old female admitted with acute withdrawal from isopropyl alcohol chronic use and dependence Objective Data Objective Data Vital Signs: Vital Signs Temp Pulse Resp BP Pulse Ox O2 Del Method 98.0 F 91 12 118/84 H 99 Room Air 11/29/23 08:56 11/29/23 08:56 11/29/23 08:56 11/29/23 08:56 11/29/23 08:56 11/29/23 08:56 Oxygen Delivery Method Room Air Weight: 58.06 kg Body Mass Index (BMI) 19.4 Intake & Output: Intake and Output for Last 24 Hours 11/27/23 11/28/23 11/29/23 23:59 23:59 23:59 Intake Total 3380 / 3380 1108.58 / 1108.58 Balance 3380 / 3380 1108.58 / 1108.58 Lab / Micro Data 11/29/23 05:11 11/29/23 05:11 Labs: Laboratory Results - last 24 hr 11/28/23 10:07: WBC 5.4, RBC 3.32 L, Hgb 10.9 L, Hct 32.9 L, MCV 99.1 H, MCH 32.8 H, MCHC 33.1, RDW Std Deviation 63.6 H, RDW Coeff of Janine 17.5 H, Plt Count 151, MPV 8.2, Immature Gran % (Auto) 0.400, Neut % (Auto) 76.9 H, Lymph % (Auto) 17.0 L, Rock % (Auto) 5.0, Eos % (Auto) 0.0, Baso % (Auto) 0.7, Absolute Neuts (auto) 4.2, Absolute Lymphs (auto) 0.92, Nucleated RBC % 0, Sodium 132 L, Potassium 3.5, Chloride 95 L, Carbon Dioxide 16.0 L, Anion Gap 21 H, BUN 9, Creatinine 0.83, Estim Creat Clear Calc 86.71, Est GFR (MDRD) Af Amer 100, Est GFR (MDRD) Non-Af 83, BUN/Creatinine Ratio 10.8, Glucose 129 H, Serum Osmolality 327 H, Calcium 8.3 L, Magnesium 1.6, Total Bilirubin 0.80, AST 223 H, ALT 71 H, Alkaline Phosphatase 93, Total Protein 7.5, Albumin 4.0, Globulin 3.5, Albumin/Globulin Ratio 1.1, Lipase 345 H, Serum , Qual NEGATIVE, Ethyl Alcohol 85.0, Acetone Level SMALL H 11/28/23 11:29: Urine Osmolality 715, U Random Total Protein 40.7 H, Ur Random Sodium 69, Urine Creatinine 58.30, Protein/Creatinin Ratio 698 H, Urine Potassium 40.0, Urine Chloride 30, Urine Test Negative, Urine Opiates Screen NEGATIVE, Urine Methadone Screen NEGATIVE, Ur Barbiturates Screen NEGATIVE, Ur Phencyclidine Scrn NEGATIVE, Ur Amphetamines Screen NEGATIVE, MDMA (Ecstasy) Screen NEGATIVE, U Benzodiazepines Scrn NEGATIVE, Urine Cocaine Screen NEGATIVE, U Cannabinoids Screen NEGATIVE, Ur Drug Screen Comment 11/28/23 11:35: Troponin I High Sens < 3 L, Salicylates < 1.7 L, Acetaminophen < 2.0 L, Blood Type O POSITIVE, Antibody Screen NEGATIVE 11/28/23 12:38: PT 16.0 H, INR 1.3 11/28/23 16:03: Hgb 8.8 L, Hct 26.5 L 11/28/23 18:56: Sodium 132 L, Potassium 3.1 L, Chloride 97 L, Carbon Dioxide 25.0, Anion Gap 10, BUN 5 L, Creatinine 1.05 H, Estim Creat Clear Calc 68.54, Est GFR (MDRD) Af Amer 77, Est GFR (MDRD) Non-Af 63, BUN/Creatinine Ratio 4.8 L, Glucose 143 H, Serum Osmolality 288, Calcium 7.9 L 11/28/23 21:50: Hgb 8.7 L, Hct 25.7 L 11/29/23 05:11: WBC 1.7 L, RBC 2.44 L, Hgb 7.9 L, Hct 24.2 L, MCV 99.2 H, MCH 32.4 H, MCHC 32.6, RDW Std Deviation 62.4 H, RDW Coeff of Janine 17.3 H, Plt Count 102 L, MPV 9.1, Immature Gran % (Auto) 0.600, Neut % (Auto) 49.5, Lymph % (Auto) 41.4 H, Rock % (Auto) 6.3, Eos % (Auto) 1.1, Baso % (Auto) 1.1 H, Absolute Neuts (auto) 0.9 L, Absolute Lymphs (auto) 0.72 L, Nucleated RBC % 0, Differential Comment SCANNED, PT 15.8 H, INR 1.3, APTT 25.5, Sodium 137, Potassium 3.7, Chloride 104, Carbon Dioxide 27.0, Anion Gap 6, BUN 6 L, Creatinine 0.50 L, Estim Creat Clear Calc 143.94, Est GFR (MDRD) Af Amer 182, Est GFR (MDRD) Non-Af 150, BUN/Creatinine Ratio 12.1, Glucose 96, Calcium 7.9 L, Total Bilirubin 0.70, Direct Bilirubin 0.29, AST 122 H, ALT 44, Alkaline Phosphatase 61, Total Protein 5.4 L, Albumin 3.0 L, Globulin 2.4, Albumin/Globulin Ratio 1.2 ABG Data ABG results: ABG 11/28/23 12:47 Specimen Type ART Sample Site L Radial pH 7.39 Bicarbonate Actual 16.1 L Total CO2 17 Base Excess -9 L O2 Saturation 97 ABG pCO2 26.5 L ABG pO2 92 O2 Delivery Device Room Air Vent Mode Not entered Radiography Diagnostic Testing: Radiology Impression Abdomen/Pelvis CT 11/28/23 10:52 IMPRESSION: 1. Suspect mild uncomplicated acute pancreatitis. 2. Fatty liver. No evidence of cirrhosis. 3. Horseshoe kidney. Otherwise, no additional renal abnormality. Electronically Signed: Ronni Pal DO at 11:53 EDT , ADDENDUM: 11/28/23 1206 IMPRESSION: 1. Suspect mild uncomplicated acute pancreatitis. 2. Fatty liver. No evidence of cirrhosis. 3. Horseshoe kidney. Otherwise, no additional renal abnormality. N.B. : Keyona Shin RN, confirmed on 11/28/2023 11:59:43 (ET) that the healthcare facility has received the radiology report. Electronically Signed: Ronni Pal DO at 11:53 EDT Reading Location ID and State: [facility] / [place] Tel , Service support , Physical Exam Narrative GENERAL: cooperative HEENT: Atraumatic; normocephalic EYES; Anicteric, Normal Conjunctiva NECK; supple, normal thyroid, RESPIRATORY: Diminished to auscultation CARDIOVASCULAR: Regular S1 S2, GI: soft, normoactive bowel sounds, : No Renal angle tenderness; EXTREMITIES: No edema, no clubbing, MUSCULOSKELETAL: no muscle wasting NEURO: Awake; no lateralizing signs. 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 Acute isopropyl alcohol withdrawal syndrome with chronic hand scientific director use dependence and tolerance . Patient presented with withdrawal symptoms including stiffness and tremors Patient was found to have high anion gap as well as osmolar gap. Poison control consulted from the emergency department recommended conservative management. There was no indication for fomepizole. Patient did receive IV fluids In addition to phenobarb taper 2. Upper GI bleed ? Patient did experience hematemesis, started on Protonix drip consult placed to GI. Plan is for patient to undergo possible endoscopic evaluation 3. Severe anxiety and depression ? With previous suicidal attempts. Patient apparently admitted to feeling anxious and depressed but no mention of suicidal ideation for now. Patient is on Prozac plan is to continue 4. DVT prophylaxis ? Low risk with encouraging ambulation Time spent in the patient's overall evaluation,decision-making process, review of diagnostic data, adjustment of management, discussion with other providers, nursing nursing and ancillary staff involved in patient's care documentation, 38 Minutes Charges/Coding Visit Charges Inpatient E&M: 78311 Subs Hosp L2
--- NOTE | 2023-11-29 11:02 | CASEMGMT ---
GINA DE JESUS Face to Face with patient for initial transition planning/care coordination assessment. GINA DE JESUS introduced self and role at [facility]. Patient lying in bed, alert and oriented. Patient willing to participate in assessment and is able to answer all questions appropriately. Care providers, pharmacy, and demographics verified. PCP: none, states counselor is assisting in setting up with PCP Specialists: Jen Berg, Counselor at [facility]: [facility] [place]; [facility] [employer] at discharge. Insurance: [employer] Prescription Benefit: yes Living Will/HPOA: none LNOK: father Living Arrangements: Patient states she lives with father in a 2 story condo. Patient states she is independent at home. Transportation: father DME/HHC: Patient denies DME in the home. No previous HHC or SNF Patient states she drinks hand santizer and one 8oz bottle last her 2 days. Patient denies other drug use and quit smoking 2 years ago. Patient wishes to discharge to [facility] for residential treatment. Patient states he has no further needs or concerns at this time. Addiction Medicine to see patient Disposition Plan: [facility] residential Anh HARRIS, RN, CM
--- NOTE | 2023-11-29 11:33 | CASEMGMT ---
Social Work- SW met with pt to administer SDOH assessment. Pt was resting in bed, but sat up and was participatory and engaged in conversation, speaking freely and with full affect. Pt is observed to be alert and oriented x3. Pt was observed to have good insight and normal thought flow. Pt does display mild psychomotor agitation; constant wringing of hands/methodical, repetitive movement of fingers. Pt reports that this is her fourth detox in a facility, although she has detoxed at home several times as well. Pt reports that she has participated in IOP and sober living programs, as well as weekly counseling. Pt reports last inpatient detox was 2019. Pt has had growing anxiety, which has led to increased substance use. Pt reports that there was no alcohol in the home and pt was obsessed with needing a drink, so pt recalled that someone in a previous treatment group shared that they used hand wildlife technician when in a similar situation. Pt states that she began using wildlife technician because it is easy to get, she didn't have to hide bottles, and it is cheap. Pt states that when she drinks, she becomes aggressive and fights with dad. Pt reports that she has lived with dad for a couple years following her last treatment stay. Prior to that, pt lived with a boyfriend in [place]. Pt reports periods of employment and sobriety intermittently throughout her life. Pt reports that she had a psychiatric hospitalization in September 2023 due to a fight with her father in which she threatened to kill herself. Pt states there was no intent, no method inferred, and no specific plan. Pt reports depression is more anhedonia/ apathy, as pt does not perform self care, care of house, and feels purposeless. Pt reports she does care for her two cats daily. Pt reports that she has struggled with anxiety since age 10 when she was first placed on medication. Pt began having panic attacks at age 17 and drinking heavily in college to quell her increasingly severe anxiety and panic attacks. Pt reports she has catastrophic thinking and intrusive thoughts such as worrying about driving and getting in an accident, going to the grocery and there being a mass shooting, etc. Pt states that she last worked two years ago. Pt reports that she receives weekly teletherapy with Jen Gonsalves at [facility]. Pt has been on numerous psychotropic medications, but hasn't found the right combination and does not currently work with a psychiatrist. Pt would like to connect with a psychiatrist as soon as possible to get started back on a mental health regiment. Pt reports that she plan to go to [facility] inpatient then transition to sober living, as she does not feel that she is able to live on her own. Pt reports that she falls apart on her own and thrives in the structure and camaraderie of treatment. Pt states that she does not plan to return to [facility] and is uncertain as to where she will end up living after time at [facility]. Because of this, pt does not desire any resources. SW remains available to follow if needs change. BETH Patel
--- NOTE | 2023-11-29 15:05 | NURSING ---
off floor for EGD
[2023-11-29] MEDS: 0.9% Normal Saline (1000mL) 1,000 ML 15 ML IV (15:28)
--- NOTE | 2023-11-29 15:48 | PCM.PRE.AN2 ---
ASA Classification* ASA Classification ASA Classification: 2 Assessment & Plan Anesthesia* Anesthesia Assessment Anesthesia Assessment: Discussed sedation and/or anesthesia options, risks, benefits, and alternatives with patient/parents/legal guardian/POA. Questions invited. The patient/parents/legal guardian/POA seems to understand and agrees to proceed with anesthesia plan. Reviewed the physical assessment, medical history, allergy history and patient home medications list prior to surgery/procedure/anesthetic and documented any changes. Performed airway and anesthesia risk assessments. Anesthesia Type Anesthesia Type: MAC History Source History Obtained from:: Patient and Chart Anesthesia Focused Assessment* Temperature: 98.9 F Pulse Rate: 86 Blood Pressure: 115/77 Respiratory Rate: 12 Pulse Ox: 99 Oxygen Delivery Method: Room Air Airway Assessment Mouth opens: >3 cm Mallampati Score: III Teeth Condition: Intact Neck Range of motion (ROM): Full ROM Focused Labs Anesthesia Preop lab: CBC WBC 1.7 K/mm3 (4.4-11.0) L 11/29/23 05:11 RBC 2.44 M/mm3 (4.2-5.4) L 11/29/23 05:11 Hgb 7.9 g/dL (12.0-15.0) L 11/29/23 05:11 Hct 24.2 % (37-47) L 11/29/23 05:11 Plt Count 102 K/mm3 (150-450) L 11/29/23 05:11 CHEMISTRY Potassium 3.7 mmol/L (3.5-5.1) 11/29/23 05:11 Sodium 137 mmol/L (136-145) 11/29/23 05:11 Magnesium 1.6 mg/dL (1.6-2.6) 11/28/23 10:07 BUN 6 mg/dL (7-18) L 11/29/23 05:11 Creatinine 0.50 mg/dL (0.55-1.02) L 11/29/23 05:11 Glucose 96 mg/dL (74-106) 11/29/23 05:11 COAG PT 15.8 SECONDS (11.7-14.9) H 11/29/23 05:11 Urine Test Negative Negative 11/28/23 11:29 Pre-Assessment Diagnosis/Proposed Procedure Planned Operative Procedure(s): EGD Anesthesia History 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 When Was Last Pacemaker Check QUESTION #4 FULL TEXT: You/Your Family Experience fever (hyperthermia) with Anesthesia Last Oral Intake Last Oral intake: Last Oral Intake NPO since 00:00 11/29/23 05:06 Meds taken in AM with sips of water? Meds patient instructed to take am of surgery PONV PONV - criminal justice professor: PONV - criminal justice professor Female HX of Motion Sickness HX of N/V After Surgery Non-Smoker Duration of Surgery greater than 60 minutes Number of Risk Factors PONV Score Height & Weight Height & Weight: Anesthesia: Height & Weight Height 5 ft 8 in 11/29/23 12:49 Weight: 58.06 kg 11/29/23 12:49 Body Mass Index (BMI) 19.4 11/29/23 05:06 Respiratory Assessment Respiratory Assessment - criminal justice professor: Respiratory Tract Infection Hx - criminal justice professor Hx Respiratory Tract Infection No 11/29/23 06:51 STOP Sleep Apnea STOP Sleep Apnea - criminal justice professor: STOP Sleep Apnea - criminal justice professor Hx Hypertension No 11/28/23 14:21 Hx Sleep Apnea No 11/28/23 14:21 CPAP BIPAP Do you snore loudly (louder No 11/28/23 14:21 than talking or can be heard Do you often feel tired/ No 11/28/23 14:21 fatigued/ sleepy during daytime? Has anyone observed you stop No 11/28/23 14:21 breathing during sleep? STOP Results Negative 11/28/23 14:21 QUESTION #5 FULL TEXT : Do you snore loudly (louder than talking or can be heard through closed doors)? 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 Specify any problems Hx of Preganancy in last 3 No 11/28/23 14:21 Months Nurse Filling Out Transfusion NBILANCIN 11/28/23 14:21 & Questions: Date: 11/28/23 11/28/23 14:21 Time: 14:41 11/28/23 14:21 Patient unable to answer at this time (ie. confused, unrespo /Reproduction History /Reproductive History - criminal justice professor: /Reproductive Hx- criminal justice professor Hx Now No 11/29/23 06:51 Gestational Age (in weeks): EDC: Hx Hx Para Hx Section SAB No 11/29/23 06:51 Active Medications Active Medications: Current Medications Generic Name Dose Route Start Last Admin Trade Name Freq PRN Reason Stop Dose Admin Acetaminophen 500 mg 11/28/23 14:20 Acetaminophen 500 Mg Tablet PO Q4H PRN PRN Pain 1-10 or Temp > 100.4 F Bisacodyl 10 mg 11/28/23 14:20 Bisacodyl 10 Mg Suppository RC DAILY PRN Constipation Dicyclomine HCl 20 mg 11/28/23 14:20 Dicyclomine 10 Mg Capsule PO Q6H PRN PRN abdominal discomfort Fluoxetine HCl 20 mg 11/29/23 10:00 11/29/23 11:38 Fluoxetine 20 Mg Capsule PO Not Given DAILY CEDRICK Folic Acid 1 mg 11/29/23 08:00 11/29/23 11:38 Folic Acid 1 Mg Tablet PO Not Given DAILY@0800 CEDRICK Gabapentin 300 mg 11/28/23 14:20 11/29/23 06:50 Gabapentin 300 Mg Capsule PO 300 mg Q8H PRN PRN Administration moderate to severe anxiety Hydroxyzine Pamoate 50 mg 11/28/23 14:20 11/28/23 23:18 Hydroxyzine Marie 25 Mg Capsule PO 50 mg Q4H PRN PRN Administration mild anxiety Pantoprazole Sodium 80 mg/ 100 mls @ 10 mls/hr 11/28/23 10:55 11/29/23 08:46 Sodium Chloride CONT INF 10 mls/hr Q10H CEDRICK Administration Sodium Chloride 250 mls @ 15 mls/hr 11/28/23 14:22 IV .[id number] PRN Additional IVPB Infusion Sodium Chloride 250 mls @ 15 mls/hr 11/28/23 14:22 IV .[id number] PRN Saline Flush Sodium Chloride 1,000 mls @ 15 mls/hr 11/29/23 15:20 11/29/23 15:28 IV 15 mls/hr .Q48H CEDRICK Administration Loperamide HCl 2 mg 11/28/23 14:20 Loperamide 2 Mg Capsule PO Q4H PRN PRN Loose Stools Olanzapine 5 mg 11/29/23 10:00 11/29/23 11:38 Olanzapine 5 Mg/Tab Tab.Rapdis PO Not Given DAILY CEDRICK Ondansetron HCl 8 mg 11/28/23 14:20 11/29/23 08:50 Ondansetron 8 Mg Tablet PO 8 mg Q8H PRN PRN Administration NAUSEA Phenobarbital 97.2 mg 11/28/23 15:00 11/29/23 15:15 Phenobarbital 32.4 Mg Tablet PO 12/02/23 22:59 Not Given Q4H CEDRICK Taper Potassium Chloride 40 meq 11/28/23 21:27 11/29/23 11:38 Potassium Chloride Oral Tablet 20 Meq PO Not Given BIDCM CEDRICK Senna 2 tablet 11/28/23 14:20 Senna Tablet PO QHS PRN Constipation Sodium Chloride 10 - 40 ml 11/28/23 14:22 0.9% Saline Lock 10 Ml Syringe IV UD PRN SALINE FLUSH Thiamine HCl 100 mg 11/29/23 08:00 11/29/23 11:38 Thiamine Hydrochloride 100 Mg Tablet PO Not Given DAILYCM CEDRICK Trazodone HCl 100 mg 11/28/23 14:20 11/28/23 23:18 Trazodone 100 Mg Tablet PO 100 mg QHS PRN Administration INSOMNIA PFSH Medical History Depression Anxiety Kidney stone ETOH abuse Home Medications ?Medication ?Instructions ?Recorded ?Last Taken ?Type fluoxetine 20 mg capsule (Prozac) 20 mg PO DAILY 11/28/23 Unknown History olanzapine 5 mg tablet (Zyprexa) 5 mg PO DAILY 11/28/23 Unknown History Allergy/AdvReac Type Severity Reaction Status Date / Time No Known Allergies Allergy Verified 11/28/23 09:43 Surgical History H/O wisdom tooth extraction Social History Smoking Status: Former smoker Review of Systems (Anesthesia) ROS Narrative System reviewed and no additional complaints, except as documented.
--- NOTE | 2023-11-29 16:00 | EGD_PTH ---
PATIENT: GAMA STEELE LOC: [facility] U#:[id number] AGE/SX: 33/F ROOM: [facility] RE11/28/[address]: Dr. Armani Cantor MD : 1990 BED: 1 DIS: 12/01/2023 SPEC #: [id number] RECD: 11/29/23 18:03 STATUS: GOLDEN REMargarita #: [id number] LAN: 11/29/23 16:[address]: Misha Castro DEPT: SURGICAL PATHOLOGY RECD BY: Trisha Sesay ENTERED: 11/30/23 10:05 SP TYPE: EGD BIOPSY OTHR DR: MD Dr. Foreign Lopes MD No Primary Care Phys Tissues: Gastric mucous membrane Procedures: Surgery Specimen Level IV Comments: @ Ordering doctor for SUIV edited from to @ by ALMA at 11/30/23 1039 @ Submitting doctor edited from to @ by ALMA at 11/30/23 1039 HEADER OPERATION: EGD, biopsy PRE-OP DIAGNOSIS: Acute upper GI bleed TISSUE SUBMITTED: Gastric body biopsy MICROSCOPIC DIAGNOSIS Gastric body, biopsy: Chronic gastritis. See comment. Rafiq 12/01/2023 COMMENT The results of immunohistochemistry for Helicobacter pylori will be reported separately ([id number]). MICROSCOPIC DESCRIPTION Slides are reviewed. GROSS DESCRIPTION Received in fixative is one container labeled with the patient's name and designated Gastric body biopsy. The specimen consists of two irregular fragments of light melgar soft tissue that in aggregate measure 0.6 x 0.4 x 0.1 cm. The specimen is totally submitted in one cassette. Aura 11/30/2023 TC:3 CPT:11764
--- NOTE | 2023-11-29 16:00 | IMM_PTH ---
PATIENT: GAMA STEELE LOC: [facility] U#:[id number] AGE/SX: 33/F ROOM: [facility] RE11/28/[address]: Dr. Armani Cantor MD : 1990 BED: 1 DIS: 12/01/2023 SPEC #: [id number] RECD: 11/30/23 10:39 STATUS: SOUT REQ #: [id number] LAN: 11/29/23 16:[address]: Misha Castro DEPT: IMMUNOHISTOCHEMISTRY RECD BY: Adelso Figueroa ENTERED: 11/30/23 10:40 SP TYPE: IMMUNO OTHR DR: MD Dr. Foreign Lopes MD No Primary Care Phys Tissues: Gastric mucous membrane Procedures: H Pylori (initial) Comments: @ Ordering doctor for H.PYLORI edited from to @ by ALMA at 11/30/23 1040 @ Submitting doctor edited from to @ by ALMA at 11/30/23 1040 PHYSICIAN & INSTITUTION [place] [id number] SPECIMEN INFORMATION: Tissue Source: Gastric body biopsy Clinical Info: Acute upper GI bleed Specimen Number: [id number] CPT code: 59199 METHODOLOGY: Deparaffinized sections of prefer/formalin-fixed tissue or PAP/DQ stained slides are incubated with monoclonal/polyclonal antibodies/oligonucleotide probes. Localization is made via biotin free immunoperoxidase method. Appropriate controls are performed and reacted as expected. Results on target cell population are indicated in the following table: RESULTS: ANTIBODY / CLONE RESULT H Pylori (polyclonal) negative These tests were developed and their performance characteristics determined by [facility]. They may not have been cleared or approved by the U.S. Food and Drug Administration. The FDA has determined that such clearance or approval is not necessary. The above immunohistochemical/dualISH markers are ordered and reviewed by the Pathologist. INTERPRETATION: Gastric antrum, biopsy: Negative for Helicobacter pylori organisms. SOL/ 12/01/2023
--- NOTE | 2023-11-29 16:16 | CHAPLAIN ---
Type of Pastoral Visit _x__ Initial Visit ___ Follow-up Visit ___ On-call Visit ___ General Patient Visit ___ Spiritual Assessment ___ Family Conference ___ Bereavement ___ Rapid Response ___ Code Blue ___ Other (describe below) Pastoral Care Referral From _x__ Patient ___ Family ___ Nurse ___ Physician ___ Sustainable Agriculture Faculty ___ Ceramic Tiler ___ Other (describe below) Sacrament/Intervention _x__ Active listening ___ Anointing ___ Quaker ___ Bereavement ___ Communion _x__ Jasmyne exploration ___ _x__ Life review _x__ Prayer ___ Reconciliation ___ Sacrament of Sick _x__ Supportive presence ___ Wedding ___ Other (describe below) Pastoral Comments patient is welcoming and easily admits that she has fears about her upcoming scope this afternoon; then pt admits to other anxieties and times of depression with her struggle of addictions; pt has had times of sobriety but goes back to the addictions; pt is asked about her coping and resources for recovery; pt acknowledges that she has had some success and some setbacks; pt is asked about the spiritual part or interest in spirituality; pt says that she went to a Judaism school but 'since God doesn't seem to be there when I need help and doesn't help me get better, I've pretty much turned away from Him, although I believe there must be a higher power; pt states that she is still open to the idea of God and that she welcomes prayers being spoken for her; pt expresses thankfulness for taking time to sit with her as she waits for the procedure
--- NOTE | 2023-11-29 17:21 | OP.EGD_ITS ---
Patient Name: Tigist Lunsford Procedure Date: 11/29/2023 4:29 PM Date of : 1990 Age: 33 Procedure: Upper GI endoscopy Indications: Hematemesis Providers: Misha Castro DO Medicines: Monitored Anesthesia Care Patient Profile: This is a 33 year old female. Refer to note in patient chart for documentation of history and physical. Patient has symptoms of acute vomiting. Complications: No immediate complications. Procedure: Pre-Anesthesia Assessment: - Prior to the procedure, a History and Physical was performed, and patient medications and allergies were reviewed. The patient is competent. The risks and benefits of the procedure and the sedation options and risks were discussed with the patient. All questions were answered and informed consent was obtained. Patient identification and proposed procedure were verified by the physician in the pre-procedure area. Mental Status Examination: alert and oriented. Airway Examination: normal oropharyngeal airway and neck mobility. Respiratory Examination: clear to auscultation. CV Examination: normal. Prophylactic Antibiotics: The patient does not require prophylactic antibiotics. Prior Anticoagulants: The patient has taken no anticoagulant or antiplatelet agents. ASA Grade Assessment: III - A patient with severe systemic disease. After reviewing the risks and benefits, the patient was deemed in satisfactory condition to undergo the procedure. The anesthesia plan was to use monitored anesthesia care (MAC). Immediately prior to administration of medications, the patient was re-assessed for adequacy to receive sedatives. The heart rate, respiratory rate, oxygen saturations, blood pressure, adequacy of pulmonary ventilation, and response to care were monitored throughout the procedure. The physical status of the patient was re-assessed after the procedure. After obtaining informed consent, the endoscope was passed under direct vision. Throughout the procedure, the patient's blood pressure, pulse, and oxygen saturations were monitored continuously. The gastroscope was introduced through the mouth, and advanced to the second part of duodenum. The upper GI endoscopy was accomplished without difficulty. The patient tolerated the procedure well. Scope In: 5:10:23 PM Scope Out: 5:13:36 PM Total Procedure Duration Time 0 hours 3 minutes 13 seconds Findings: LA Grade C (one or more mucosal breaks continuous between tops of 2 or more mucosal folds, less than 75% circumference) esophagitis with bleeding was found 34 to 40 cm from the incisors. Diffuse severely erythematous mucosa without bleeding was found in the gastric body. Biopsies were taken with a cold forceps for histology. Verification of patient identification for the specimen was done. Estimated blood loss was minimal. Biopsies were taken with a cold forceps for Helicobacter pylori testing. Verification of patient identification for the specimen was done. Estimated blood loss was minimal. No gross lesions were noted in the first portion of the duodenum. Impression: - LA Grade C erosive esophagitis with bleeding. - Erythematous mucosa in the gastric body. Biopsied. - No gross lesions in the first portion of the duodenum. Recommendation: - [facility]. - Resume regular diet today. - Continue present medications. - Await pathology results. Procedure Code(s): --- Professional --- 68197, Esophagogastroduodenoscopy, flexible, transoral; with biopsy, single or multiple CPT copyright 2021 [employer]. All rights reserved. The codes documented in this report are preliminary and upon gas prover review may be revised to meet current compliance requirements. Misha Castro DO 11/29/2023 5:21:31 PM This report has been signed electronically. Number of Addenda: 0 Note Initiated On: 11/29/2023 4:29 PM
--- NOTE | 2023-11-29 17:21 | PCM.POST.ANE ---
Anesthesia: Postop Eval I Current Vital Signs Temperature: 99.4 F Pulse Rate: 114 Blood Pressure: 125/76 Respiratory Rate: 16 Pulse Ox: 96 Oxygen Delivery Method: Room Air Assessment Airway patent: Yes Spontaneous unlabored respirations: Yes Mental status: Awake and Calm nausea: No Vomiting: No Anesthesia Complication: No Fluid Hydration Crystalloid volume administer (ml): 300 Total IV fluid infused: 300 Progress Note Anesthesia document: Postop Eval 1 completed: Yes
--- NOTE | 2023-11-29 17:22 | OP.CCLET_ITS ---
11/29/2023 No Primary Care Physician Re : Upper GI endoscopy procedure for Tigist Lunsford Dear Care Physician This procedure was performed on Wednesday, November 29, 2023. My impressions and recommendations are as follows: Impressions : - LA Grade C erosive esophagitis with bleeding. - Erythematous mucosa in the gastric body. Biopsied. - No gross lesions in the first portion of the duodenum. Recommendations : - [facility]. - Resume regular diet today. - Continue present medications. - Await pathology results. My findings are described in the full procedure note, which is enclosed. If I can be of further assistance, please feel free to contact me at . Sincerely, Misha Castro, 11/29/2023 5:21:31 PM This report has been signed electronically.
--- NOTE | 2023-11-29 17:22 | POSTOPAN2_ITS ---
Anesthesia Postop Eval I Sum Postop Eval Completion status Anesthesia document: Postop Eval 1 completed: Yes Anesthesia Postop Eval I Summary Anesthesia Postop Eval I Summary: Anesthesia Postop Eval I: Assessment Summary Airway patent Yes 11/29/23 17:22 RADAR MECHANIC.MDOT Spontaneous unlabored Yes 11/29/23 17:22 RADAR MECHANIC.OT respirations Mental status Awake,Calm 11/29/23 17:22 RADAR MECHANIC.MDOT nausea No 11/29/23 17:22 RADAR MECHANIC.MDOT Vomiting No 11/29/23 17:22 RADAR MECHANIC.MDOT Anesthesia Postop Eval I: Fluid Summary Crystalloid volume administer 300 11/29/23 17:22 RADAR MECHANIC.MDOT (ml) Colloids volume administered ( ml) Blood Product volume administered (ml) Total IV fluid infused 300 11/29/23 17:22 RADAR MECHANIC.SUSANA Anesthesia Postop Eval I: Summary Notes Anesthesia Complication No 11/29/23 17:22 RADAR MECHANIC.OT Anesthesia Complication Comment: Post-operative progress note Anesthesia: Postop Eval II Evaluation Mental status: Awake and Calm Pain Level: 0 nausea: No Vomiting: No Complications Anesthesia Complication: No
--- NOTE | 2023-11-29 17:22 | PCM.POSTANE2 ---
Anesthesia Postop Eval I Sum Postop Eval Completion status Anesthesia document: Postop Eval 1 completed: Yes Anesthesia Postop Eval I Summary Anesthesia Postop Eval I Summary: Anesthesia Postop Eval I: Assessment Summary Airway patent Yes 11/29/23 17:22 PRECISION MACHINING INSTRUCTOR.MDOT Spontaneous unlabored Yes 11/29/23 17:22 PRECISION MACHINING INSTRUCTOR.OT respirations Mental status Awake,Calm 11/29/23 17:22 PRECISION MACHINING INSTRUCTOR.MDOT nausea No 11/29/23 17:22 PRECISION MACHINING INSTRUCTOR.MDOT Vomiting No 11/29/23 17:22 PRECISION MACHINING INSTRUCTOR.MDOT Anesthesia Postop Eval I: Fluid Summary Crystalloid volume administer 300 11/29/23 17:22 PRECISION MACHINING INSTRUCTOR.MDOT (ml) Colloids volume administered ( ml) Blood Product volume administered (ml) Total IV fluid infused 300 11/29/23 17:22 PRECISION MACHINING INSTRUCTOR.SUSANA Anesthesia Postop Eval I: Summary Notes Anesthesia Complication No 11/29/23 17:22 PRECISION MACHINING INSTRUCTOR.OT Anesthesia Complication Comment: Post-operative progress note Anesthesia: Postop Eval II Evaluation Mental status: Awake and Calm Pain Level: 0 nausea: No Vomiting: No Complications Anesthesia Complication: No
[2023-11-30 03:18] VITALS: BP 128/88; PULSE 80; RESP 18; TEMP 36.7; O2SAT 100
[2023-11-30] MEDS: Phenobarbital 32.4 MG Tablet 64.8 MG PO ×6 (03:18→22:41)
[2023-11-30] MEDS: Pantoprazole Sodium 80 MG in 0.9% Normal Saline (100mL Bag) 80 ML 10 MG CONT INF (04:45)
[2023-11-30 07:56] LABS: ALB/GLOB Ratio 1.1 RATIO (0.9-2.4); AST(SGOT) 100 U/L (15-37); Alanine Aminotransfer ALT/SGPT 40 U/L (13-56); Albumin, Serum 3.1 g/dL (3.2-5.0); Alkaline Phosphatase 72 U/L (45-117); Anion Gap 7 (5-15); BUN 5 mg/dL (7-18); BUN/Creat Ratio 12.9 RATIO (10-20); Calcium,Total 8.7 mg/dL (8.5-10.1); Chloride 102 mmol/L (98-107); Creatinine, Serum 0.39 mg/dL (0.55-1.02); EST Glomerular Filtration Rate 200 mL/min (>60); Est Glom Filt Rate - Afr Amer 242 mL/min (>60); Estimated Creatinine Clearance 184.54 ml/min; Globulin 2.9 g/dL (2.2-4.2); Glucose 90 mg/dL (74-106); Potassium 3.2 mmol/L (3.5-5.1); Sodium Level 133 mmol/L (136-145)
[2023-11-30] MEDS: Potassium Chloride Oral Tablet 20 MEQ 40 MEQ PO ×3 (08:45→18:17)
[2023-11-30] MEDS: OLANZapine 5 MG/TAB TAB.RAPDIS PO (08:45)
[2023-11-30] MEDS: Folic Acid 1 MG Tablet PO (08:46)
[2023-11-30] MEDS: Thiamine Hydrochloride 100 MG Tablet PO (08:46)
[2023-11-30] MEDS: FLUoxetine 20 MG Capsule PO (08:46)
--- NOTE | 2023-11-30 09:44 | PCM.PN.HOSP ---
Reason for Visit Reason for Visit: Diagnoses Alcohol use, unspecified with withdrawal delirium (11/28/23) Gastrointestinal hemorrhage, unspecified (11/28/23) Subjective Subjective Patient seen still complains of being anxious. Underwent EGD the day prior. Results are as below. Diagnostic data significant for low potassium and sodium levels. Objective Data Objective Data Vital Signs: Vital Signs Temp Pulse Resp BP Pulse Ox O2 Del Method 98.1 F 80 18 128/88 H 100 Room Air 11/30/23 03:18 11/30/23 03:18 11/30/23 03:18 11/30/23 03:18 11/30/23 03:18 11/30/23 03:18 Oxygen Delivery Method Room Air Weight: 58.06 kg Body Mass Index (BMI) 19.4 Intake & Output: Intake and Output for Last 24 Hours 11/28/23 11/29/23 11/30/23 23:59 23:59 23:59 Intake Total 3380 / 3380 1681.25 / 1681.25 220 / 220 Balance 3380 / 3380 1681.25 / 1681.25 220 / 220 Lab / Micro Data 11/29/23 05:11 11/30/23 06:51 Labs: Laboratory Results - last 24 hr 11/30/23 06:51: Sodium 133 L, Potassium 3.2 L, Chloride 102, Carbon Dioxide 24.0, Anion Gap 7, BUN 5 L, Creatinine 0.39 L, Estim Creat Clear Calc 184.54, Est GFR (MDRD) Af Amer 242, Est GFR (MDRD) Non-Af 200, BUN/Creatinine Ratio 12.9, Glucose 90, Calcium 8.7, Total Bilirubin 0.70, AST 100 H, ALT 40, Alkaline Phosphatase 72, Total Protein 6.0 L, Albumin 3.1 L, Globulin 2.9, Albumin/Globulin Ratio 1.1 Physical Exam Narrative GENERAL: cooperative HEENT: Atraumatic; normocephalic EYES; Anicteric, Normal Conjunctiva NECK; supple, normal thyroid, RESPIRATORY: Diminished to auscultation CARDIOVASCULAR: Regular S1 S2, GI: soft, normoactive bowel sounds, : No Renal angle tenderness; EXTREMITIES: No edema, no clubbing, MUSCULOSKELETAL: no muscle wasting NEURO: Awake; no lateralizing signs. 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 Acute isopropyl alcohol withdrawal syndrome with chronic hand senior account director use dependence and tolerance . Patient presented with withdrawal symptoms including stiffness and tremors Patient was found to have high anion gap as well as osmolar gap. Poison control consulted from the emergency department recommended conservative management. There was no indication for fomepizole. Patient did receive IV fluids In addition to phenobarb taper ? 11/30/2023; patient symptoms improving plan is for patient to be discharged to [facility] for inpatient rehab. Patient is medically ready for discharge 2. Upper GI bleed ? Patient did experience hematemesis, started on Protonix drip consult placed to GI. Plan is for patient to undergo possible endoscopic evaluation -11/30/2023; EGD the day prior did demonstrate - LA Grade C erosive esophagitis with bleeding. - Erythematous mucosa in the gastric body. Biopsied. - No gross lesions in the first portion of the duodenum ?Patient is on Protonix drip switched to p.o. potassium 3. Severe anxiety and depression ? With previous suicidal attempts. Patient apparently admitted to feeling anxious and depressed but no mention of suicidal ideation for now. Patient is on Prozac plan is to continue 4. DVT prophylaxis ? Low risk with encouraging ambulation 5. Hypokalemia -Corrected per protocol 6. Mild hyponatremia ? Monitoring Time spent in the patient's overall evaluation,decision-making process, review of diagnostic data, adjustment of management, discussion with other providers, nursing nursing and ancillary staff involved in patient's care documentation, 38 Minutes Charges/Coding Visit Charges Inpatient E&M: 08206 Subs Hosp L2
[2023-11-30] MEDS: 0.9% Saline Lock 10 ML Syringe IV (09:59)
[2023-11-30] MEDS: Pantoprazole Sodium 40 MG Tablet PO ×2 (10:00→22:42)
[2023-11-30 10:37] VITALS: BP 109/70; PULSE 91; RESP 14; TEMP 36.6; O2SAT 100
--- NOTE | 2023-11-30 11:33 | ADDICTION ---
clinician met with client to discuss her hx of use and treatment goals. client has requested residential tx with [facility] (rafita in chart). clinician discussed residential tx and process. client presented cooperative and motivated to remain sober. clinician will collaborate with nursing team for discharge date and coordinate with [facility] for transport.
[2023-11-30 15:26] VITALS: BP 114/80; PULSE 102; RESP 16; TEMP 36.3; O2SAT 100
--- NOTE | 2023-11-30 16:58 | EX.PCM.PN.GI ---
Subjective Subjective Patient is doing well today. She is still mildly tremulous. She underwent upper endoscopy yesterday. She is tolerating a normal diet today. Objective Data Objective Data Vital Signs: Vital Signs Temp Pulse Resp BP Pulse Ox O2 Del Method 97.3 F L 102 H 16 114/80 100 Room Air 11/30/23 15:26 11/30/23 15:26 11/30/23 15:26 11/30/23 15:26 11/30/23 15:26 11/30/23 15:26 Oxygen Delivery Method Room Air Weight: 128 lb 0.006 oz Body Mass Index (BMI) 19.4 Intake & Output: Intake and Output for Last 24 Hours 11/28/23 11/29/23 11/30/23 23:59 23:59 23:59 Intake Total 3380 / 3380 1681.25 / 1681.25 1471.17 / 1471.17 Balance 3380 / 3380 1681.25 / 1681.25 1471.17 / 1471.17 Lab / Micro Data 11/29/23 05:11 11/30/23 06:51 Labs: Laboratory Results - last 24 hr 11/30/23 06:51: Sodium 133 L, Potassium 3.2 L, Chloride 102, Carbon Dioxide 24.0, Anion Gap 7, BUN 5 L, Creatinine 0.39 L, Estim Creat Clear Calc 184.54, Est GFR (MDRD) Af Amer 242, Est GFR (MDRD) Non-Af 200, BUN/Creatinine Ratio 12.9, Glucose 90, Calcium 8.7, Total Bilirubin 0.70, AST 100 H, ALT 40, Alkaline Phosphatase 72, Total Protein 6.0 L, Albumin 3.1 L, Globulin 2.9, Albumin/Globulin Ratio 1.1 Physical Exam Narrative GENERAL: cooperative HEENT: Atraumatic; normocephalic EYES; Anicteric, Normal Conjunctiva NECK; supple, normal thyroid, RESPIRATORY: Diminished to auscultation CARDIOVASCULAR: Regular S1 S2, GI: soft, normoactive bowel sounds, : No Renal angle tenderness; EXTREMITIES: No edema, no clubbing, MUSCULOSKELETAL: no muscle wasting NEURO: Awake; no lateralizing signs. SKIN: No Rash PSYCH; Flat affect Assessment & Plan Assessment/Plan (1) Acute upper GI bleed: PLAN: Findings from her upper endoscopy : LA Grade C (one or more mucosal breaks continuous between tops of 2 or more mucosal folds, less than 75% circumference) esophagitis with bleeding was found 34 to 40 cm from the incisors. Diffuse severely erythematous mucosa without bleeding was found in the gastric body. Biopsies were taken with a cold forceps for histology. Verification of patient identification for the specimen was done. Estimated blood loss was minimal. Biopsies were taken with a cold forceps for Helicobacter pylori testing. Verification of patient identification for the specimen was done. Estimated blood loss was minimal. No gross lesions were noted in the first portion of the duodenum. Impression: - LA Grade C erosive esophagitis with bleeding. - Erythematous mucosa in the gastric body. Biopsied. - No gross lesions in the first portion of the duodenum. Patient's labs are little bit pancytopenic today. Attributed partly to bone marrow toxicity from alcohol and dilution. Her hemoglobin is slightly down to 7.9 today. Recommend to recheck it later on today at 6:00pm. Continue PPI therapy. Charges/Coding Visit Charges Inpatient E&M: 81868 Subs Hosp L3
[2023-11-30 18:31] LABS: Hematocrit 26.1 % (37-47); Hemoglobin 8.4 g/dL (12.0-15.0)
[2023-11-30 19:45] VITALS: BP 106/77; PULSE 88; RESP 18; TEMP 36.6; O2SAT 98
[2023-11-30] MEDS: traZODone 100 MG Tablet PO (22:41)
[2023-11-30] MEDS: Senna Tablet 2 TABLET PO (22:41)
[2023-11-30 22:45] VITALS: BP 100/84; PULSE 97; RESP 18; TEMP 36.4; O2SAT 100
[2023-12-01 04:49] VITALS: BP 112/82; PULSE 97; RESP 18; TEMP 36.8; O2SAT 98
[2023-12-01] MEDS: Phenobarbital 32.4 MG Tablet 64.8 MG PO (04:50)
--- NOTE | 2023-12-01 06:19 | PN.HOSP_ITS ---
Reason for Visit Reason for Visit: Diagnoses Alcohol use, unspecified with withdrawal delirium (11/28/23) Gastrointestinal hemorrhage, unspecified (11/28/23) Objective Data Objective Data Vital Signs: Vital Signs Temp Pulse Resp BP Pulse Ox O2 Del Method 98.3 F 97 18 112/82 H 98 Room Air 12/01/23 04:49 12/01/23 04:49 12/01/23 04:49 12/01/23 04:49 12/01/23 04:49 12/01/23 04:50 Oxygen Delivery Method Room Air Weight: 58.06 kg Body Mass Index (BMI) 19.4 Intake & Output: Intake and Output for Last 24 Hours 11/29/23 11/30/23 12/01/23 23:59 23:59 23:59 Intake Total 1681.25 / 1681.25 3191.17 / 3191.17 120 / 120 Balance 1681.25 / 1681.25 3191.17 / 3191.17 120 / 120 Lab / Micro Data 11/30/23 18:01 11/30/23 06:51 Labs: Laboratory Results - last 24 hr 11/30/23 06:51: Sodium 133 L, Potassium 3.2 L, Chloride 102, Carbon Dioxide 24.0, Anion Gap 7, BUN 5 L, Creatinine 0.39 L, Estim Creat Clear Calc 184.54, Est GFR (MDRD) Af Amer 242, Est GFR (MDRD) Non-Af 200, BUN/Creatinine Ratio 12.9, Glucose 90, Calcium 8.7, Total Bilirubin 0.70, AST 100 H, ALT 40, Alkaline Phosphatase 72, Total Protein 6.0 L, Albumin 3.1 L, Globulin 2.9, Albumin/Globulin Ratio 1.1 11/30/23 18:01: Hgb 8.4 L, Hct 26.1 L Physical Exam Narrative GENERAL: cooperative HEENT: Atraumatic; normocephalic EYES; Anicteric, Normal Conjunctiva NECK; supple, normal thyroid, RESPIRATORY: Diminished to auscultation CARDIOVASCULAR: Regular S1 S2, GI: soft, normoactive bowel sounds, : No Renal angle tenderness; EXTREMITIES: No edema, no clubbing, MUSCULOSKELETAL: no muscle wasting NEURO: Awake; no lateralizing signs. 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 Patient presented with withdrawal symptoms including stiffness and tremors Patient was found to have high anion gap as well as osmolar gap. Poison control consulted from the emergency department recommended conservative management. There was no indication for fomepizole. Patient did receive IV fluids In addition to phenobarb taper ? 11/30/2023; patient symptoms improving plan is for patient to be discharged to [facility] for inpatient rehab. Patient is medically ready for discharge 2. Upper GI bleed ? Patient did experience hematemesis, started on Protonix drip consult placed to GI. Plan is for patient to undergo possible endoscopic evaluation -11/30/2023; EGD the day prior did demonstrate - LA Grade C erosive esophagitis with bleeding. - Erythematous mucosa in the gastric body. Biopsied. - No gross lesions in the first portion of the duodenum ?Patient is on Protonix drip switched to p.o. potassium 3. Severe anxiety and depression ? With previous suicidal attempts. Patient apparently admitted to feeling anxious and depressed but no mention of suicidal ideation for now. Patient is on Prozac plan is to continue 4. DVT prophylaxis ? Low risk with encouraging ambulation 5. Hypokalemia -Corrected per protocol 6. Mild hyponatremia ? Monitoring Time spent in the patient's overall evaluation,decision-making process, review of diagnostic data, adjustment of management, discussion with other providers, nursing nursing and ancillary staff involved in patient's care documentation, 38 Minutes
--- NOTE | 2023-12-01 07:25 | DS.PCM_ITS ---
Providers Date of Admission: 11/28/23 Date of Discharge: 12/01/23 Primary Care Physician: [facility] Phys Consultations 11/28/23 14:20 Consult: Gastroenterology Routine Consulting Provider: [facility] Reason for Consult: GI bleed EMERGENT Consult: No MD Notified: Yes Date Notified: 11/28/23 Time Notified: 12:26 Method of Notification: ED Physician Initiated Reason For Visit: ACUTE HI BLEED; ALCOHOL WITHDRAWAL SYNDROME Diagnosis Discharge Diagnosis (1) Acute hyperactive alcohol withdrawal delirium: Status: Acute Code(s): F10.931 - Alcohol use, unspecified with withdrawal delirium (2) Acute upper GI bleed: Status: Acute Code(s): K92.2 - Gastrointestinal hemorrhage, unspecified Plan Patient is a 33-year-old female admitted with 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 Patient presented with withdrawal symptoms including stiffness and tremors Patient was found to have high anion gap as well as osmolar gap. Poison control consulted from the emergency department recommended conservative management. There was no indication for fomepizole. Patient did receive IV fluids In addition to phenobarb taper ? 11/30/2023; patient symptoms improving plan is for patient to be discharged to [facility] for inpatient rehab. Patient is medically ready for discharge 2. Upper GI bleed ? Patient did experience hematemesis, started on Protonix drip consult placed to GI. Plan is for patient to undergo possible endoscopic evaluation -11/30/2023; EGD the day prior did demonstrate - LA Grade C erosive esophagitis with bleeding. - Erythematous mucosa in the gastric body. Biopsied. - No gross lesions in the first portion of the duodenum ?Patient is on Protonix drip switched to p.o. potassium 3. Severe anxiety and depression ? With previous suicidal attempts. Patient apparently admitted to feeling anxious and depressed but no mention of suicidal ideation for now. Patient is on Prozac plan is to continue 4. DVT prophylaxis ? Low risk with encouraging ambulation 5. Hypokalemia -Corrected per protocol 6. Mild hyponatremia ? Monitoring Time spent in the patient's overall evaluation,decision-making process, review of diagnostic data, adjustment of management, discussion with other providers, nursing nursing and ancillary staff involved in patient's care documentation, 38 Minutes Medications at Discharge Home Medications acetaminophen 500 mg tablet 500 mg PO Q4H PRN PRN Pain 1-10 or Temp > 100.4 F #0 tabs 11/30/23 fluoxetine 20 mg capsule (Prozac) 20 mg PO DAILY #30 caps 11/30/23 folic acid 1 mg tablet 1 mg PO DAILY@0800 #30 tabs 11/30/23 hydroxyzine pamoate 25 mg capsule 50 mg (2 x 25 mg) PO Q4H PRN PRN mild anxiety #60 caps 11/30/23 olanzapine 5 mg tablet (Zyprexa) 5 mg PO DAILY #30 tabs 11/30/23 pantoprazole 40 mg tablet,delayed release 40 mg PO BID #60 tabs 11/30/23 potassium chloride 20 mEq tablet,extended release(part/cryst) 20 meq PO BIDCM #30 tabs 11/30/23 thiamine HCl (vitamin B1) 100 mg tablet (Vitamin B-1) 100 mg PO DAILYCM #30 tabs 11/30/23 Physical Exam Narrative GENERAL: cooperative HEENT: Atraumatic; normocephalic EYES; Anicteric, Normal Conjunctiva NECK; supple, normal thyroid, RESPIRATORY: Diminished to auscultation CARDIOVASCULAR: Regular S1 S2, GI: soft, normoactive bowel sounds, : No Renal angle tenderness; EXTREMITIES: No edema, no clubbing, MUSCULOSKELETAL: no muscle wasting NEURO: Awake; no lateralizing signs. SKIN: No Rash PSYCH; Flat affect Weight / BMI Weight Weight: 58.06 kg Body Mass Index (BMI) 19.4 ABG / Lab / Microbiology Data 11/30/23 18:01 11/30/23 06:51 Laboratory: Laboratory Results - last 24 hr 11/30/23 06:51: Sodium 133 L, Potassium 3.2 L, Chloride 102, Carbon Dioxide 24.0, Anion Gap 7, BUN 5 L, Creatinine 0.39 L, Estim Creat Clear Calc 184.54, Est GFR (MDRD) Af Amer 242, Est GFR (MDRD) Non-Af 200, BUN/Creatinine Ratio 12.9, Glucose 90, Calcium 8.7, Total Bilirubin 0.70, AST 100 H, ALT 40, Alkaline Phosphatase 72, Total Protein 6.0 L, Albumin 3.1 L, Globulin 2.9, Albumin/Globulin Ratio 1.1 11/30/23 18:01: Hgb 8.4 L, Hct 26.1 L D/C Instructions Discharge Diet: No restrictions Discharge Activity: Return to Normal Activity Call your doctor if you observe: Fever of 101 or Higher, Shortness of breath, Fainting spells and Chest pain Meaningful Use Info Meaningful Use Meaningful Use Diagnoses (Choose all that apply): None applicable Ischemic Stroke Statin Dosing Therapy Reference: STATIN DOSE THERAPY REFERENCE: * Patients > 75 years receive moderate or high dose statin therapy. * Patients 75 years or YOUNGER should receive HIGH intensity statin dose unless contraindicated. You will be required to document reason for non-treatment if statin daily dose does not meet guidelines. HIGH DOSE STATIN THERAPY DAILY Atorvastatin > than or = to 40 mg Rosuvastatin > than or = to 20 mg Amlodipine + Atorvastatin > than or = to 2.5/40 mg Ezetimibe + Simvastatin 10/80 mg Simvastatin 80mg Discharge Plan Admission Admit Date/Time: 11/28/23 12:09 Attending Provider: Armani Cantor Primary Care Provider: Care Physician,No Primary Consulting Providers: Foreign aPng Discharge Orders/Prescriptions Prescriptions: New thiamine HCl (vitamin B1) [Vitamin B-1] 100 mg Tablet 100 mg PO DAILYCM Qty: 30 0RF potassium chloride 20 mEq Tablet,Er Particles/Crystals 20 meq PO BIDCM Qty: 30 0RF pantoprazole 40 mg Tablet,Delayed Release (Dr/Ec) 40 mg PO BID Qty: 60 0RF acetaminophen 500 mg Tablet 500 mg PO Q4H PRN PRN (Reason: Pain 1-10 or Temp > 100.4 F) Qty: 0 0RF folic acid 1 mg Tablet 1 mg PO DAILY@0800 Qty: 30 0RF hydroxyzine pamoate 25 mg Capsule 50 mg PO Q4H PRN PRN (Reason: mild anxiety) Qty: 60 0RF Continued olanzapine [Zyprexa] 5 mg tablet 5 mg PO DAILY Qty: 30 0RF fluoxetine [Prozac] 20 mg capsule 20 mg PO DAILY Qty: 30 0RF Referrals / Follow Up: Care Physician,No Primary [Primary Care Provider] - Within 2 Weeks NOT,DEFINED [Non-Staff] - Disposition Disposition (needs filled in before D/C Order can be placed): Inpatient Rehab Unit/Facility Charges/Coding Visit Charges Inpatient E&M: 95588 Disch Hosp >30min
[2023-12-01 07:43] VITALS: BP 108/67; PULSE 80; RESP 16; TEMP 36.9; O2SAT 100
[2023-12-01] MEDS: Thiamine Hydrochloride 100 MG Tablet PO (07:44)
[2023-12-01] MEDS: Folic Acid 1 MG Tablet PO (07:44)
[2023-12-01] MEDS: OLANZapine 5 MG/TAB TAB.RAPDIS PO (07:44)
[2023-12-01] MEDS: Pantoprazole Sodium 40 MG Tablet PO (07:44)
[2023-12-01] MEDS: FLUoxetine 20 MG Capsule PO (07:44)
[2023-12-01] MEDS: Potassium Chloride Oral Tablet 20 MEQ 40 MEQ PO (07:44)
[2023-12-01] MEDS: Acetaminophen 500 MG Tablet PO (07:50)
[2023-12-01 08:04] LABS: ALB/GLOB Ratio 1.1 RATIO (0.9-2.4); AST(SGOT) 67 U/L (15-37); Alanine Aminotransfer ALT/SGPT 32 U/L (13-56); Albumin, Serum 2.9 g/dL (3.2-5.0); Alkaline Phosphatase 71 U/L (45-117); Anion Gap 7 (5-15); BUN 5 mg/dL (7-18); BUN/Creat Ratio 12.5 RATIO (10-20); Calcium,Total 8.9 mg/dL (8.5-10.1); Chloride 103 mmol/L (98-107); EST Glomerular Filtration Rate 193 mL/min (>60); Est Glom Filt Rate - Afr Amer 233 mL/min (>60); Estimated Creatinine Clearance 179.93 ml/min; Globulin 2.7 g/dL (2.2-4.2); Glucose 102 mg/dL (74-106); Potassium 3.9 mmol/L (3.5-5.1); Protein, Total 5.6 g/dL (6.4-8.2); Sodium Level 135 mmol/L (136-145)
--- NOTE | 2023-12-01 09:26 | ADDICTION ---
clinician met with client to follow up. she will most likely be discharged today; [facility] will transport to residential tx facility. client is feeling good about this tx goal. she continues to present as cooperative, pleasant and in preparation stage of change. clinician provided unconditional positive regard and support to client.
[2023-12-01] MEDS: Bisacodyl 5 MG Tablet 10 MG PO (09:45)
== END 2023-12-01 11:24 | disposition home or self-care (01) | DRG 775 ==
LOC: ED 11:06 → PCU 13:14
PROVIDERS: Internal Medicine Gastroenterology; Admitting Provider Internal Medicine; Emergency Provider Student in an Organized Health Care Education/Training Program; Visit Provider Internal Medicine
PROC: 0DJ08ZZ Inspection of Upper Intestinal Tract, Via Natural or Artificial Opening Endoscopic (ICD-10-PCS; CPT 43235; principal; 2023-11-29 15:55)
DX: F10.231 Alcohol dependence with withdrawal delirium (principal); K85.90 Acute pancreatitis without necrosis or infection, unspecified; E87.20 Acidosis, unspecified; K20.81 Other esophagitis with bleeding; D62 Acute posthemorrhagic anemia; K70.10 Alcoholic hepatitis without ascites; F32.A Depression, unspecified; E87.1 Hypo-osmolality and hyponatremia; K76.0 Fatty (change of) liver, not elsewhere classified; K29.70 Gastritis, unspecified, without bleeding; F41.9 Anxiety disorder, unspecified; E87.6 Hypokalemia; Q63.1 Lobulated, fused and horseshoe kidney; Z87.891 Personal history of nicotine dependence; Y90.4 Blood alcohol level of 80-99 mg/100 ml
CPT/HCPCS: 36415; 36600; 74177; 80048; 80053; 80076; 80307; 80329; 81025; 82009; 82077; 82436; 82570; 82803; 83690; 83735; 83930; 83935; 84133; 84156; 84300; 84484; 84703; 85014; 85018; 85025; 85610; 85730; 86850; 86900; 86901; 88305; 88342; 93005; 97802; 99283; J7030; Q9967; A4216; G0480; J2405

== ENCOUNTER → 2023-12-16 | Outpatient (CLI) | payer MEDICAID, SELFPAY ==
[2023-12-16 18:16] LABS: HIV - WCH Non-Reactive (Nonreactive); Hepatitis B Surface Antibody Reactive; Hepatitis B Surface Antigen Non-Reactive (Nonreactive); Hepatitis C Antibody Non-Reactive (Nonreactive); Syphilis Antibodies Non-reactive
[2023-12-18 06:08] LABS: Hepatitis B Core Ab Total Negative (Negative)
[2023-12-21 16:10] LABS: HPV APTIMA, High Risk Positive (Negative)
[2023-12-21 16:27] LABS: HPV Reflexed? YES, CHARGE PATIENT
== END | disposition home or self-care (01) ==
PROVIDERS: Visit Provider Nurse Practitioner Family
DX: Z01.419 Encounter for gynecological examination (general) (routine) without abnormal findings (principal); Z11.51 Encounter for screening for human papillomavirus (HPV); Z11.3 Encounter for screening for infections with a predominantly sexual mode of transmission
CPT/HCPCS: 86703; 86704; 86706; 86780; 86803; 87340; 87624; 88175; G0145

== ENCOUNTER → 2024-01-07 | Outpatient (CLI) | payer MEDICAID, SELFPAY ==
[2024-01-07 09:43] LABS: Iron 18 ug/dL (50-170); Potassium 4.3 mmol/L (3.5-5.1)
[2024-01-07 10:40] LABS: Vitamin B12 305 pg/mL (211-911); Vitamin D,25 Hydroxy 23.2 ng/mL
== END | disposition home or self-care (01) ==
LOC: LAB 08:59
PROVIDERS: Referring Provider Family Medicine; Visit Provider Family Medicine
DX: E56.9 Vitamin deficiency, unspecified (principal)
CPT/HCPCS: 36415; 82306; 82607; 83540; 84132

== ENCOUNTER → 2024-02-21 | Outpatient (CLI) | payer MEDICAID, SELFPAY ==
[2024-02-21 16:57] LABS: Free T3 2.2 pg/mL (2.18-3.98); T4 Free Direct 0.65 ng/dL (0.76-1.46)
== END | disposition home or self-care (01) ==
LOC: LAB 15:54
PROVIDERS: Referring Provider Psychiatry & Neurology Psychiatry; Visit Provider Psychiatry & Neurology Psychiatry
DX: E03.9 Hypothyroidism, unspecified (principal)
CPT/HCPCS: 36415; 84439; 84443; 84481